=== PATIENT | female | born 1980 | race Caucasian/White ===

== ENCOUNTER 2017-08-09 20:48 | Emergency (ER) | payer MEDICAID, OTHER ==
[~2017-08-09] VITALS: Ht 175.3 cm; Wt 104.3 kg
[~2017-08-09 20:48] MED LIST: CPR500T PO; DIAZ5TAB3 PO; HCTZ12.5T PO; TRAM50TA2 PO; TRIA1CAP4 PO; bp medication
--- OUTSIDE RECORDS SUMMARY | 2017-08-09 20:54 | XMS REPORT ---
Author Author BEN GABRIEL Organization [employer] Address Unknown Phone Unavailable Care Team Providers Care Loading Unit Operator Seating Name Role Phone BEN GABRIEL CP Unavailable Allergies No Known Allergies Problems Problem Type Condition Code Onset Dates Condition Status Problem Essential hypertension I10 Active Problem ADD (attention deficit disorder) F90.0 Active Medications Medication Code System Code Instructions Start Date End Date Status Dosage Mohini [facility] [address]-98 5-325 MG Orally 3 times a day prn October 04, 2015 Oct 14, 2015 1 tablet as needed Results No Known Results Summary Purpose eClinicalWorks Submission
--- OUTSIDE RECORDS SUMMARY | 2017-08-09 20:54 | XMS REPORT ---
Author Author EVANGELIST SMITH Organization [employer] Address Unknown Phone Unavailable Care Team Providers Care Business School Dean Name Role Phone EVANGELIST SMITH CP Unavailable Allergies, Adverse Reactions, Alerts Substance Reaction Event Type Dairy Info Not Available Non Drug Allergy oranges Info Not Available Non Drug Allergy carrots Info Not Available Non Drug Allergy gluten Info Not Available Non Drug Allergy Problems Problem Type Condition Code Onset Dates Condition Status Assessment Attention deficit hyperactivity disorder (ADHD), combined type F90.2 Active Problem Essential hypertension I10 Active Medications Medication Code System Code Instructions Start Date End Date Status Dosage Vyvanse [facility] [address]-12 30 MG Orally Once a day Mar 29, 2015 1 capsule in the morning Amlodipine Besylate [facility] [address]-31 5 MG Orally Once a day 1 tablet Hydrochlorothiazide [facility] [address]-88 12.5 MG Orally Once a day 1 capsule Multivitamins [facility] [address] Orally not defined Procedures Procedure Coding System Code Date Psych diagnostic evaluation w/medical services, established patient CPT-4 57725 Mar 29, 2015 Vital Signs Date/Time: Mar 29, 2015 Cardiac Monitoring Heart Rate 80 bpm Weight 246.9 lbs Height 70 in BMI 35.42 Index Blood Pressure Diastolic 86 mmHg Blood Pressure Systolic 158 mmHg Results No Known Results Summary Purpose eClinicalWorks Submission
--- OUTSIDE RECORDS SUMMARY | 2017-08-09 20:54 | XMS REPORT ---
Author Author LACEY Mcintosh Organization [facility] Address Unknown Care Team Providers Care Printer Slotter Operator Name Role Phone LACEY Mcintosh Unavailable PROBLEMS Type Condition ICD9-CM Code [id number] Code Onset Dates Condition Status SNOMED Code Problem Generalized anxiety disorder F41.1 Active 43989293 Problem Attention deficit hyperactivity disorder (ADHD), combined type F90.2 Active 802753651 Problem ADD (attention deficit disorder) F90.0 Active 063728926 Problem Essential hypertension I10 Active 54675528 ALLERGIES Substance Reaction Event Type Date Status gluten Unknown Non Drug Allergy Mar, Active Dairy Unknown Non Drug Allergy Mar, Active oranges Unknown Non Drug Allergy Mar, Active carrots Unknown Non Drug Allergy Mar, Active SOCIAL HISTORY No smoking Hx information available PLAN OF CARE Activity Details Follow Up 3 Months Reason: VITAL SIGNS Height 70 in 2016-03-31 Weight 233.6 lbs 2016-03-31 Heart Rate 92 bpm 2016-03-31 Respiratory Rate 20 2016-03-31 BMI 33.51 kg/m2 2016-03-31 Blood pressure systolic 164 mmHg 2016-03-31 Blood pressure diastolic 85 mmHg 2016-03-31 MEDICATIONS Medication Instructions Dosage Frequency Start Date End Date Duration Status Adderall 20 mg Orally 2 times a day 1 tablet in the morning AND ONE IN AFTERNOON 12h Mar, 30 days Active Multivitamins Active [place] 5-325 MG Orally 2 times a day prn 1 tablet as needed Sep, Active RESULTS Name Result Date Reference Range URINE DRUG SCREEN (IN HOUSE) 2016-03-31 Lot # [id number] Exp date Control + COCAINE Negative AMPH Positive MTD Negative THC Positive OPIATE Negative BENZO Negative PCP Negative BAR Negative OXY Negative MAMP Negative TCA Negative BUP Negative MDMA Negative PROCEDURES Procedure Date Ordered Related Diagnosis Body Site DRUG TEST PRSMV DIR OPT OBS Mar 31, 2016 MH Office Visit, Est Pt., Level 3 Mar 31, 2016 IMMUNIZATIONS No Known Immunizations
--- OUTSIDE RECORDS SUMMARY | 2017-08-09 20:54 | XMS REPORT ---
Author Author EVANGELIST SMITH Organization [employer] Address Unknown Phone Unavailable Care Team Providers Care Retail Marketing Manager Name Role Phone EVANGELIST SMITH Unavailable Allergies No Known Allergies Problems Problem Type Condition Code Onset Dates Condition Status Problem Essential hypertension I10 Active Medications No Known Medications Results No Known Results Summary Purpose eClinicalWorks Submission
--- OUTSIDE RECORDS SUMMARY | 2017-08-09 20:54 | XMS REPORT ---
Author Author LACEY Mcintosh Organization [facility] Address Unknown Care Team Providers Care Line Servicer Name Role Phone LACEY Mcintosh Unavailable PROBLEMS Type Condition ICD9-CM Code [id number] Code Onset Dates Condition Status SNOMED Code Problem Generalized anxiety disorder F41.1 Active 32232365 Problem Attention deficit hyperactivity disorder (ADHD), combined type F90.2 Active 180292008 Problem ADD (attention deficit disorder) F90.0 Active 482035148 Problem Essential hypertension I10 Active 21274257 ALLERGIES Substance Reaction Event Type Date Status gluten Unknown Non Drug Allergy Jun, Active Dairy Unknown Non Drug Allergy Jun, Active oranges Unknown Non Drug Allergy Jun, Active carrots Unknown Non Drug Allergy Jun, Active SOCIAL HISTORY Never Assessed PLAN OF CARE Activity Details Follow Up 3 Months Reason: VITAL SIGNS Height 70 in 2016-06-30 Weight 245.0 lbs 2016-06-30 Heart Rate 80 bpm 2016-06-30 Respiratory Rate 20 2016-06-30 BMI 35.15 kg/m2 2016-06-30 Blood pressure systolic 180 mmHg 2016-06-30 Blood pressure diastolic 90 mmHg 2016-06-30 MEDICATIONS Medication Instructions Dosage Frequency Start Date End Date Duration Status Multivitamins Active Adderall 20 mg Orally twice a day 1 tablet 12h Jun, 30 days Active BusPIRone HCl 10 MG Orally as needed Twice a day 1 tablet 12h Jun, 30 days Active RESULTS No Results PROCEDURES No Known procedures IMMUNIZATIONS No Known Immunizations MEDICAL (GENERAL) HISTORY Type Description Date Medical History Hypertension Medical History Arthritis Medical History Chronic pain Medical History Seasonal allergies/food allergies Medical History ADHD Surgical History bilateral carpal tunnel release Surgical History Right ulnar nerve release Surgical History Right tennis elbow repair Surgical History Right shoulder repair Surgical History Right knee fracture repair Surgical History tonsillectomy Surgical History Tubal ligation Hospitalization History Food poisoning Hospitalization History past surgery
--- OUTSIDE RECORDS SUMMARY | 2017-08-09 20:54 | XMS REPORT ---
Author Author LACEY Mcintosh Organization [facility] Address Unknown Care Team Providers Care Physical Biochemist Name Role Phone LACEY Mcintosh Unavailable PROBLEMS Type Condition ICD9-CM Code [id number] Code Onset Dates Condition Status SNOMED Code Problem Generalized anxiety disorder F41.1 Active 01431619 Problem Attention deficit hyperactivity disorder (ADHD), combined type F90.2 Active 196556308 Problem ADD (attention deficit disorder) F90.0 Active 844321852 Problem Essential hypertension I10 Active 54306138 ALLERGIES No Information ENCOUNTERS Encounter Location Date Diagnosis [facility] [id number] [place] [address] Jun, [facility] [id number] [place] [address] May, [facility] [id number] [place] [address] Apr, Attention deficit hyperactivity disorder (ADHD), combined type F90.2 [facility] [id number] [place] [address] Apr, [facility] [id number] [place] [address] Apr, Generalized anxiety disorder F41.1 and Attention deficit hyperactivity disorder (ADHD), predominantly inattentive type F90.0 [facility] [id number] [place] [address] Sep, [facility] [id number] [place] [address] Aug, [facility] [id number] [place] [address] July, [facility] [id number] [address] Jun, Attention deficit hyperactivity disorder (ADHD), combined type F90.2 ; ADD (attention deficit disorder) F90.0 and Generalized anxiety disorder F41.1 [facility] [id number] [place] [address] Apr, Attention deficit hyperactivity disorder (ADHD), combined type F90.2 [facility] [id number] [place] [address] Mar, Attention deficit hyperactivity disorder (ADHD), combined type F90.2 [facility] [id number] [place] [address] Jan, [facility] [address] [place] [address] Jan, Attention deficit hyperactivity disorder (ADHD), combined type F90.2 [facility] [address] [place] [address] Dec, [facility] [id number] [place] [address] Nov, [facility] [address] [place] [address] Oct, [facility] [id number] [address] Oct, [facility] [id number] [place] [address] Oct, [facility] [id number] [address] Sep, Acute pain of left knee M25.562 [facility] [id number] [place] [address] Sep, [facility] [id number] [place] [address] Aug, [facility] [address] [address] Aug, Attention deficit hyperactivity disorder (ADHD), combined type F90.2 [facility] [id number] [place] [address] July, [facility] [address] [place] [address] Jun, [facility] [address] [address] May, ADD (attention deficit disorder) F90.0 [facility] [id number] [place] [address] May, [facility] [id number] [place] [address] May, [facility] [address] [address] Apr, [facility] [address] [place] [address] Apr, [facility] [id number] [place] [address] Apr, [facility] [address] [address] Mar, [facility] [address] [place] [address] Mar, [facility] [address] [place] [address] Mar, [facility] [address] [place] [address] Mar, Attention deficit hyperactivity disorder (ADHD), combined type F90.2 [facility] [address] [place] [address] Feb, [facility] [id number] [address] Feb, Essential hypertension I10 ; History of vitamin D deficiency Z86.39 ; Joint pain M25.50 and Other specified counseling Z71.89 IMMUNIZATIONS No Known Immunizations SOCIAL HISTORY Never Assessed REASON FOR VISIT adderall 10/01/2016 PLAN OF CARE VITAL SIGNS MEDICATIONS Medication Instructions Dosage Frequency Start Date End Date Duration Status Adderall 20 mg Orally twice a day 1 tablet 12h Sep, 28 days Active RESULTS No Results PROCEDURES No Known procedures INSTRUCTIONS MEDICATIONS ADMINISTERED No Known Medications MEDICAL (GENERAL) HISTORY Type Description Date Medical [...]
--- OUTSIDE RECORDS SUMMARY | 2017-08-09 20:54 | XMS REPORT ---
Author Author LACEY REDMAN [facility] Address Unknown Care Team Providers Care Lumber Tailer Name Role Phone ЮЛИЯLACEY Unavailable PROBLEMS Type Condition ICD9-CM Code [id number] Code Onset Dates Condition Status SNOMED Code Problem Generalized anxiety disorder F41.1 Active 07071930 Problem Attention deficit hyperactivity disorder (ADHD), combined type F90.2 Active 293127886 Problem ADD (attention deficit disorder) F90.0 Active 157674547 Problem Essential hypertension I10 Active 66055527 ALLERGIES Unknown Allergies SOCIAL HISTORY No smoking Hx information available PLAN OF CARE Activity Details Follow Up 3 Months Reason: VITAL SIGNS Height 70 in 2016-01-21 Weight 242.8 lbs 2016-01-21 Heart Rate 92 bpm 2016-01-21 Respiratory Rate 20 2016-01-21 BMI 34.83 kg/m2 2016-01-21 Blood pressure systolic 168 mmHg 2016-01-21 Blood pressure diastolic 94 mmHg 2016-01-21 MEDICATIONS Medication Instructions Dosage Frequency Start Date End Date Duration Status Adderall 20 MG Orally 2 times a day 1 tablet in the morning AND ONE IN AFTERNOON 12h Jan, 30 days Active [place] 5-325 MG Orally 2 times a day prn 1 tablet as needed Sep, Active Multivitamins Active RESULTS No Results PROCEDURES Procedure Date Ordered Related Diagnosis Body Site MH Office Visit, Est Pt., Level 3 Jan 21, 2016 IMMUNIZATIONS No Known Immunizations
--- OUTSIDE RECORDS SUMMARY | 2017-08-09 20:54 | XMS REPORT ---
Author Author EVANGELIST SMITH [facility] eClinicalWorks Address Unknown Phone Unavailable Care Team Providers Care Filter Tender Jelly Name Role Phone EVANGELIST SMITH Unavailable Allergies No Known Allergies Problems Problem Type Condition Code Onset Dates Condition Status Problem Essential hypertension I10 Active Medications Medication Code System Code Instructions Start Date End Date Status Dosage Adderall [facility] [address]-48 20 MG Orally 2 times a day Mar 31, 2015 1 tablet in the morning AND ONE IN AFTERNOON Results No Known Results Summary Purpose eClinicalWorks Submission
--- OUTSIDE RECORDS SUMMARY | 2017-08-09 20:54 | XMS REPORT ---
Author Author LACEY REDMAN Organization [employer] Address Unknown Phone Unavailable Care Team Providers Care Development Expert Name Role Phone LACEY REDMAN Unavailable Allergies No Known Allergies Problems Problem Type Condition Code Onset Dates Condition Status Problem Essential hypertension I10 Active Problem ADD (attention deficit disorder) F90.0 Active Medications Medication Code System Code Instructions Start Date End Date Status Dosage Adderall [facility] [address]-37 20 mg Orally 2 times a day Mar 31, 2015 1 tablet in the morning AND ONE IN AFTERNOON Results No Known Results Summary Purpose eClinicalWorks Submission
--- OUTSIDE RECORDS SUMMARY | 2017-08-09 20:54 | XMS REPORT ---
Author FISH Rock Organization [employer] Address Unknown Phone Unavailable Care Team Providers Care Metal Tank Builder Name Role Phone FISH HSIEH Unavailable Allergies No Known Allergies Problems Problem Type Condition Code Onset Dates Condition Status Problem Essential hypertension I10 Active Problem ADD (attention deficit disorder) F90.0 Active Medications Medication Code System Code Instructions Start Date End Date Status Dosage Adderall [facility] [address]-22 20 MG Orally 2 times a day Mar 31, 2015 1 tablet in the morning AND ONE IN AFTERNOON Results No Known Results Summary Purpose eClinicalWorks Submission
--- OUTSIDE RECORDS SUMMARY | 2017-08-09 20:54 | XMS REPORT ---
Author Author LACEY Mcintosh Organization [facility] Address Unknown Care Team Providers Care Water Softener Service Supervisor Name Role Phone LACEY Mcintosh Unavailable PROBLEMS Type Condition ICD9-CM Code [id number] Code Onset Dates Condition Status SNOMED Code Problem Generalized anxiety disorder F41.1 Active 59656160 Problem Attention deficit hyperactivity disorder (ADHD), combined type F90.2 Active 060141801 Problem ADD (attention deficit disorder) F90.0 Active 660595667 Problem Essential hypertension I10 Active 83129317 ALLERGIES Unknown Allergies SOCIAL HISTORY No smoking Hx information available PLAN OF CARE VITAL SIGNS MEDICATIONS Medication Instructions Dosage Frequency Start Date End Date Duration Status Adderall 20 mg Orally 2 times a day 1 tablet in the morning AND ONE IN AFTERNOON 12h 23 Mar, 2016 30 days Active RESULTS No Results PROCEDURES No Known procedures IMMUNIZATIONS No Known Immunizations
--- OUTSIDE RECORDS SUMMARY | 2017-08-09 20:54 | XMS REPORT ---
Author Author LACEY REDMAN [facility] Address Unknown Care Team Providers Care Director Of Flight Operations Name Role Phone LACEY REDMAN Unavailable PROBLEMS Type Condition ICD9-CM Code [id number] Code Onset Dates Condition Status SNOMED Code Problem ADD (attention deficit disorder) F90.0 Active 047067951 Problem Essential hypertension I10 Active 84159838 ALLERGIES Unknown Allergies SOCIAL HISTORY No smoking Hx information available PLAN OF CARE VITAL SIGNS MEDICATIONS Medication Instructions Dosage Frequency Start Date End Date Duration Status Adderall 20 mg Orally 2 times a day 1 tablet in the morning AND ONE IN AFTERNOON 12h 23 Mar, 2015 Active RESULTS No Results PROCEDURES No Known procedures IMMUNIZATIONS No Known Immunizations
--- OUTSIDE RECORDS SUMMARY | 2017-08-09 20:54 | XMS REPORT ---
Author FISH Rock [facility] eClinicalWorks Address Unknown Phone Unavailable Care Team Providers Care Art Display Maker Name Role Phone FISH HSIEH Unavailable Allergies No Known Allergies Problems Problem Type Condition Code Onset Dates Condition Status Problem Essential hypertension I10 Active Medications Medication Code System Code Instructions Start Date End Date Status Dosage Vyvanse [facility] [address]-09 30 MG Orally Once a day Mar 29, 2015 1 capsule in the morning Adderall [facility] [address]-26 20 MG Orally 2 times a day Mar 31, 2015 1 tablet in the morning AND ONE IN AFTERNOON Results No Known Results Summary Purpose eClinicalWorks Submission
--- OUTSIDE RECORDS SUMMARY | 2017-08-09 20:55 | XMS REPORT ---
Author Author BEN GABRIEL [facility] eClinicalWorks Address Unknown Phone Unavailable Care Team Providers Care Sewer Pipe Layer Name Role Phone BEN GABRIEL Unavailable Allergies, Adverse Reactions, Alerts Substance Reaction Event Type gluten Info Not Available Non Drug Allergy Dairy Info Not Available Non Drug Allergy oranges Info Not Available Non Drug Allergy carrots Info Not Available Non Drug Allergy Problems Problem Type Condition Code Onset Dates Condition Status Assessment Essential hypertension I10 Active Assessment History of vitamin D deficiency Z86.39 Active Problem Essential hypertension I10 Active Assessment Joint pain M25.50 Active Assessment Other specified counseling Z71.89 Active Medications Medication Code System Code Instructions Start Date End Date Status Dosage Amlodipine Besylate [facility] [address]-18 5 MG Orally Once a day 1 tablet Hydrochlorothiazide [facility] [address]-05 12.5 MG Orally Once a day 1 capsule Multivitamins [facility] [address] Orally not defined Procedures Procedure Coding System Code Date ASSAY THYROID STIM HORMONE CPT-4 52389 Feb 22, 2015 ASSAY OF VITAMIN D CPT-4 74399 Feb 22, 2015 COMPREHEN METABOLIC PANEL CPT-4 59732 Feb 22, 2015 Office Visit, New Pt., Level 3 CPT-4 05272 Feb 22, 2015 COMPLETE CBC W/AUTO DIFF WBC CPT-4 24382 Feb 22, 2015 VENIPUNCT, ROUTINE* CPT-4 85455 Feb 22, 2015 Vital Signs Date/Time: Feb 22, 2015 Temperature 97.7 F Weight 246.9 lbs Height 70 in BMI 35.42 Index Blood Pressure Diastolic 84 mmHg Blood Pressure Systolic 146 mmHg Cardiac Monitoring Heart Rate 82 bpm Results Name Result Date Reference Range Unit Abnormality Flag CBC ----Lymphs 20 [id number] % ----Neutrophils 72 52925570 % ----Baso (Absolute) 0.0 [id number] 0.0-0.2 x10E3/uL ----Hemoglobin 13.2 20150222 11.1-15.9 g/dL ----Eos (Absolute) 0.1 51409843 0.0-0.4 x10E3/uL ----Hematocrit 40.4 74766373 34.0-46.6 % ----Monocytes(Absolute) 0.5 49909385 0.1-0.9 x10E3/uL ----MCV 88 05274731 79-97 fL ----Lymphs (Absolute) 1.4 86387858 0.7-3.1 x10E3/uL ----MCH 28.6 46018735 26.6-33.0 pg ----Neutrophils (Absolute) 5.1 60668718 1.4-7.0 x10E3/uL ----MCHC 32.7 89845050 31.5-35.7 g/dL ----Immature Granulocytes 0 74871796 % ----Basos 0 24011373 % ----RDW 13.8 91008543 12.3-15.4 % ----Immature Grans (Abs) 0.0 81875392 0.0-0.1 x10E3/uL ----WBC 7.1 46880329 3.4-10.8 x10E3/uL ----Platelets 221 57847874 150-379 x10E3/uL ----Eos 1 20150222 % ----RBC 4.61 78620418 3.77-5.28 x10E6/uL ----Monocytes 7 13171722 % VITAMIN D, 25-H ----Vitamin D, 25-Hydroxy 32.7 20150222 30.0-100.0 ng/mL ROUTINE VENIPUNCTURE TSH ----TSH 1.490 [id number] 0.450-4.500 uIU/mL CMP ----Potassium, Serum 3.8 20150222 3.5-5.2 mmol/L ----Sodium, Serum 141 20150222 134-144 mmol/L ----BUN/Creatinine Ratio 6 75734628 8-20 L ----eGFR If Africn Am 91 05007740 >59 mL/min/1.73 ----eGFR If NonAfricn Am 79 59381653 >59 mL/min/1.73 ----Creatinine, Serum 0.93 13251462 0.57-1.00 mg/dL ----BUN 6 20150222 6-20 mg/dL ----Glucose, Serum 92 20150222 65-99 mg/dL ----AST (SGOT) 11 20150222 0-40 IU/L ----Globulin, Total 2.5 20150222 1.5-4.5 g/dL ----ALT (SGPT) 19 20150222 0-32 IU/L ----A/G Ratio 1.7 20150222 1.1-2.5 ----Bilirubin, Total 0.4 20150222 0.0-1.2 mg/dL ----Alkaline Phosphatase, S 70 20150222 39-117 IU/L ----Carbon Dioxide, Total 31 20150222 18-29 mmol/L H ----Calcium, Serum 9.5 20150222 8.7-10.2 mg/dL ----Protein, Total, Serum 6.7 20150222 6.0-8.5 g/dL ----Albumin, Serum 4.2 20150222 3.5-5.5 g/dL ----Chloride, Serum 100 20150222 97-108 mmol/L Summary Purpose eClinicalWorks Submission
--- OUTSIDE RECORDS SUMMARY | 2017-08-09 20:55 | XMS REPORT ---
Author Author BEN GABRIEL Organization [employer] Address Unknown Phone Unavailable Care Team Providers Care Php Developer Name Role Phone BEN GABRIEL CP Unavailable Allergies No Known Allergies Problems Problem Type Condition Code Onset Dates Condition Status Problem Essential hypertension I10 Active Medications No Known Medications Results No Known Results Summary Purpose eClinicalWorks Submission
--- OUTSIDE RECORDS SUMMARY | 2017-08-09 20:55 | XMS REPORT ---
Author Author STEVEN BARONE [facility] eClinicalWorks Address Unknown Phone Unavailable Care Team Providers Care Round Boner Name Role Phone STEVEN BARONE Unavailable Allergies No Known Allergies Problems Problem Type Condition Code Onset Dates Condition Status Problem Essential hypertension I10 Active Problem ADD (attention deficit disorder) F90.0 Active Medications Medication Code System Code Instructions Start Date End Date Status Dosage [facility] [address]-02 5-325 MG Orally 2 times a day prn October 04, 2015 1 tablet as needed Results No Known Results Summary Purpose eClinicalWorks Submission
--- OUTSIDE RECORDS SUMMARY | 2017-08-09 20:55 | XMS REPORT ---
Author Author BEN GABRIEL Organization [employer] Address Unknown Phone Unavailable Care Team Providers Care Keyboard Teacher Name Role Phone BEN GABRIEL CP Unavailable Allergies, Adverse Reactions, Alerts Substance Reaction Event Type gluten Info Not Available Non Drug Allergy Dairy Info Not Available Non Drug Allergy oranges Info Not Available Non Drug Allergy carrots Info Not Available Non Drug Allergy Problems Problem Type Condition Code Onset Dates Condition Status Problem Essential hypertension I10 Active Assessment Acute pain of left knee M25.562 Active Problem ADD (attention deficit disorder) F90.0 Active Medications Medication Code System Code Instructions Start Date End Date Status Dosage Adderall [facility] [address]-42 20 mg Orally 2 times a day Mar 31, 2015 1 tablet in the morning AND ONE IN AFTERNOON Multivitamins [facility] [address] Orally not defined Bradley [facility] [address]-27 5-325 MG Orally 3 times a day prn October 04, 2015 Oct 14, 2015 1 tablet as needed Procedures Procedure Coding System Code Date Office Visit, Est Pt., Level 4 CPT-4 38735 October 04, 2015 X-RAY EXAM OF KNEE, 3 CPT-4 26883 October 04, 2015 Vital Signs Date/Time: October 04, 2015 Cardiac Monitoring Heart Rate 100 bpm Weight 234 lbs Height 70 in BMI 33.57 Index Blood Pressure Diastolic 86 mmHg Blood Pressure Systolic 130 mmHg Results No Known Results Summary Purpose [employer] Submission
--- OUTSIDE RECORDS SUMMARY | 2017-08-09 20:55 | XMS REPORT ---
Author Author EVANGELIST SMITH Organization [employer] Address Unknown Phone Unavailable Care Team Providers Care Cleaner Housekeeping Name Role Phone EVANGELIST SMITH Unavailable Allergies No Known Allergies Problems Problem Type Condition Code Onset Dates Condition Status Problem Essential hypertension I10 Active Medications No Known Medications Results No Known Results Summary Purpose [employer] Submission
--- OUTSIDE RECORDS SUMMARY | 2017-08-09 20:55 | XMS REPORT ---
Author Author LACEY Mcintosh Organization [facility] Address Unknown Care Team Providers Care Hot Die Press Feeder Name Role Phone LACEY Mcintosh Unavailable PROBLEMS Type Condition ICD9-CM Code AGO45-JO Code Onset Dates Condition Status SNOMED Code Problem Generalized anxiety disorder F41.1 Active 75371938 Problem Attention deficit hyperactivity disorder (ADHD), combined type F90.2 Active 738126507 Problem ADD (attention deficit disorder) F90.0 Active 387741877 Problem Essential hypertension I10 Active 03144250 ALLERGIES No Information SOCIAL HISTORY Never Assessed PLAN OF CARE VITAL SIGNS MEDICATIONS Medication Instructions Dosage Frequency Start Date End Date Duration Status Adderall 20 mg Orally twice a day 1 tablet 12h July, 28 days Active RESULTS No Results PROCEDURES [...]
--- NOTE | 2017-08-09 22:41 | ED Lower Extremity ---
General Chief Complaint: Foreign Body Stated Complaint: TOOTHPICK IN R FOOT ON THURSDAY, POSS INFECTION Nursing Triage Note: Pt. advises she stepped on a tooth pick thursday. She advises the tooth pick was removed at that time however she is now experiencing swelling, redness and warmth to the touch. Nursing Sepsis Screen: No Definite Risk Source: patient, other Exam Limitations: no limitations History of Present Illness Date Seen by Provider: Aug 09, 2017 Time Seen by Provider: 22:33 Initial Comments The patient presents to the ER by private conveyance with her significant other and a chief complaint that Thursday, 7 days ago she stepped on a toothpick and her significant other thought that they got all the pulled out but it's continued to swell and be painful and turn red in her right foot between her first and second digit. She thinks her last tetanus shot was greater than 5 years ago. She's having no fevers chills nausea vomiting diarrhea. Allergies and Home Medications Allergies Coded Allergies: No Known Drug Allergies (Unverified , 11/09/11) Home Medications Hydrochlorothiazide 12.5 Mg Cap, 12.5 MG PO DAILY, (Reported) Tramadol Hcl 50 Mg Tablet, 50 MG PO Q4H PRN for PAIN Prescribed by: TRAMAINE FREY on 05/22/142039 Patient Home Medication List Home Medication List Reviewed: Yes Constitutional: No chills, No diaphoresis, No fever EENTM: No ear discharge, No ear pain Respiratory: No cough, No short of breath Cardiovascular: No chest pain, No Hx of Intervention, No palpitations Gastrointestinal: No abdominal pain, No constipation, No nausea Genitourinary: No discharge, No dysuria : No Control/STD Prophylaxis: Other (tubal ligation) Musculoskeletal: No back pain, No joint pain Skin: No pruritus, No rash Psychiatric/Neurological: Denies Headache, Denies Numbness Past Khjizkv-Qqoncd-Uprwxc Hx Patient Social History Alcohol Use: Denies Use Recreational Drug Use: No Smoking Status: Never a Smoker Recent Foreign Travel: No Contact w/Someone Who Travel: No Recent Infectious Disease Expo: No Physical Abuse: No Sexual Abuse: No Past Medical History Surgeries: Yes (l knee , r elbow, r rotoar cuff, bilat carpal tunnel) Tonsillectomy, Tubal Ligation Respiratory: No Cardiac: Yes Hypertension Neurological: 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 Gastrointestinal: No Musculoskeletal: No Endocrine: No Cancer: No Psychosocial: No Nursing Suicide Risk Score: 0 Integumentary: No Blood Disorders: No Adverse Reaction/Blood Tranf: No Family Medical History No Pertinent Family Hx Physical Exam Vital Signs Vital Signs - First Documented 08/09/17 22:05 Temp 97.2 Pulse 73 Resp 16 B/P (MAP) 133/79 (97) Pulse Ox 99 O2 Delivery Room Air Capillary Refill : Less Than 3 Seconds General Appearance: WD/WN, no apparent distress HEENT: PERRL/EOMI, pharynx normal Neck: non-tender, normal inspection Cardiovascular: normal peripheral pulses, regular rate, rhythm Respiratory: no respiratory distress, no accessory muscle use Gastrointestinal: non tender, soft Feet: right foot other (erythema, swelling, soft tissue tenderness, pore that is not discharging anything) Neurologic/Tendon: normal sensation, normal motor functions, normal tendon functions, responds to pain, no evidence tendon injury Neurologic/Psychiatric: alert, oriented x 3 Skin: normal color, warm/dry Lymphatic: no adenopathy Progress/Results/Core Measures Results/Orders Lab Results Laboratory Tests Test 08/09/17 23:02 Range/Units White Blood Count 10.8 4.3-11.0 10^3/uL Red Blood Count 4.71 4.35-5.85 10^6/uL Hemoglobin 13.4 11.5-16.0 G/DL Hematocrit 40 35-52 % Mean Corpuscular Volume 86 80-99 FL Mean Corpuscular Hemoglobin 29 25-34 PG Mean Corpuscular Hemoglobin Concent 33 32-36 G/DL Red Cell Distribution Width 14.2 10.0-14.5 % Platelet Count 238 130-400 10^3/uL Mean Platelet Volume 11.2 H 7.4-10.4 FL Neutrophils (%) (Auto) 85 H 42-75 % Lymphocytes (%) (Auto) 9 L 12-44 % Monocytes (%) (Auto) 5 0-12 % Eosinophils (%) (Auto) 1 0-10 % Basophils (%) (Auto) 0 0-10 % Neutrophils # (Auto) 9.2 H 1.8-7.8 X 10^3 Lymphocytes # (Auto) 1.0 1.0-4.0 X 10^3 Monocytes # (Auto) 0.5 0.0-1.0 X 10^3 Eosinophils # (Auto) 0.1 0.0-0.3 10^3/uL Basophils # (Auto) 0.0 0.0-0.1 10^3/uL Sodium Level 140 135-145 MMOL/L Potassium Level 3.9 3.6-5.0 MMOL/L Chloride Level 103 98-107 MMOL/L Carbon Dioxide Level 26 21-32 MMOL/L Anion Gap 11 5-14 MMOL/L Blood Urea Nitrogen 12 7-18 MG/DL Creatinine 0.85 0.60-1.30 MG/DL Estimat Glomerular Filtration Rate > 60 BUN/Creatinine Ratio 14 Glucose Level 100 70-105 MG/DL Calcium Level 9.4 8.5-10.1 MG/DL Total Bilirubin 0.4 0.1-1.0 MG/DL Aspartate Amino Transf (AST/SGOT) 10 5-34 U/L Alanine Aminotransferase (ALT/SGPT) 13 0-55 U/L Alkaline Phosphatase 115 40-136 U/L Total Protein 7.2 6.4-8.2 GM/DL Albumin 4.0 3.2-4.5 GM/DL My Orders Orders - CARLENE LOVE Fentanyl Injection (Sublimaze Injection (08/09/17 22:45) Dipht,Pertuss(Acell),Tet Adult (Boostrix (08/09/17 22:45) Cefepime Injection (Maxipime Injection) (08/09/17 23:00) Cbc With Automated Diff (08/09/17 22:46) Comprehensive Metabolic Panel (08/09/17 22:46) Foot, Right, 3 View (08/09/17 22:46) Iv Heplock-Insert (Order) (08/09/17 22:46) Fluconazole Tablet (Ed Only) (Diflucan T (08/09/17 23:15) Fentanyl Injection (Sublimaze Injection (08/09/17 23:30) Medications Given in ED Current Medications Medications Dose Ordered Sig/Leonard Route Start Time Stop Time Status Last Admin Dose Admin Cefepime HCl 2000 mg/Sodium Chloride 50 ml @ 100 mls/hr ONCE ONCE IV 08/09/17 23:00 08/09/17 23:29 DC 08/09/17 23:10 100 MLS/HR Diphtheria/ Tetanus/Acell Pertussis 0.5 ml ONCE ONCE IM 08/09/17 22:45 08/09/17 22:46 DC 08/09/17 23:09 0.5 ML Fentanyl Citrate 50 mcg ONCE ONCE IVP 08/09/17 22:45 08/09/17 22:46 DC 08/09/17 23:10 50 MCG Fentanyl Citrate 75 mcg ONCE ONCE IVP 08/09/17 23:30 08/09/17 23:31 DC 08/09/17 23:32 75 MCG Fluconazole 150 mg ONCE ONCE PO 08/09/17 23:15 08/09/17 23:16 DC 08/09/17 23:32 150 MG Vital Signs/I&O 08/09/17 08/09/17 22:05 23:09 Temp 97.2 97.2 Pulse 73 Resp 16 B/P (MAP) 133/79 (97) Pulse Ox 99 O2 Delivery Room Air Blood Pressure Mean: 97 Progress Progress Note #1: Time: 22:45 Progress Note Plain film x-ray of the right foot, cefepime IV for antipseudomonal coverage, numb the wound up with some lidocaine give her a tetanus shot and try and open it and explore and see if there is any foreign body. Progress Note #2: Time: 23:32 Progress Note We have given her 50 g of fentanyl and another 75 mg of fentanyl because she did not tolerate the lidocaine. After that had a chance to get on board we will attempt again. If she is not able to tolerate injecting lidocaine in her foot then she will need to follow-up with the general surgeon outpatient. She does not have an elevated white count nor she septic. Progress Note #3: Time: 23:46 Progress Note The patient has elected to follow up with Dr. Gracia. We'll make sure she has antibiotics and she can get further pain meds from Dr. Gracia. Clear liquid diet tomorrow morning has been described. Diagnostic Imaging Diagonstic Imaging: Xray Plain Films/CT/US/NM/MRI: other (right foot) Comments No acute osseous abnormalities. No gas or soft tissue signs of gangrenous changes. No foreign body apparent. Reviewed: Reviewed by Me Consults : Consulting Physician: AYAKA GRACIA DO Consults Notes He is willing to see the patient in the morning in the clinic. Clear liquid diet in the morning. Departure Impression Primary Impression: Foreign body in lower extremity Qualified Codes: S80.851A - Superficial foreign body, right lower leg, initial encounter Disposition: HOME, SELF-CARE Condition: Stable Departure-Patient Inst. Decision time for Depature: 23:46 Referrals: DANIELLE NASCIMENTO DO (PCP) Primary Care Physician BEN GABRIEL (Family) Primary Care Physician Patient Instructions: NO INSTRUCTIONS GIVEN Add. Discharge Instructions: Use Tylenol 1000 mg in addition to ibuprofen 800 mg every 8 hours as needed for pain. Keep the foot elevated above the level of your heart. Tomorrow morning please follow-up with Dr. Gracia's clinic. You may have clear liquids in the morning such as coffee, juice, water. 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 All discharge instructions reviewed with patient and/or family. Voiced understanding. Scripts Sulfamethoxazole/Trimethoprim (Bactrim Ds Tablet) 1 Each Tablet 2 EACH PO BID for 7 Days, #28 TAB 0 Refills Prov: CARLENE LOVE 08/09/17 Work/School Note: Work Release Form Date Seen in the Emergency Department: Aug 09, 2017 Return to Work: Aug 11, 2017 Restrictions: No Restrictions Copy Copies To 1: DANIELLE NASCIMENTO DO; AYAKA GRACIA TITUS J Aug 09, 2017 22:41
[2017-08-09] MEDS ORDERED: fentaNYL INJECTION 100 MCG/2 ML AMP IVP ONE ×2 (22:45→23:30)
[2017-08-09] MEDS ORDERED: TETANUS,DIPTH,PERTUSS P/F (BOOSTRIX) 0.5 ML VIAL IM ONE (22:45)
[2017-08-09] MEDS ORDERED: CEFEPIME INJECTION 2,000 MG in NS (IVPB) 50 ML IV ONE (23:00)
[2017-08-09 23:09] LABS: BASOPHILS % (AUTO) 0 % (0-10); EOSINOPHILS # (AUTO) 0.1 10^3/uL (0.0-0.3); EOSINOPHILS % (AUTO) 1 % (0-10); HEMATOCRIT 40 % (35-52); HEMOGLOBIN 13.4 G/DL (11.5-16.0); LYMPHOCYTES % (AUTO) 9 % (12-44); MEAN CORPUSCULAR HEMOGLOBIN 29 PG (25-34); MEAN CORPUSCULAR HGB CONC 33 G/DL (32-36); MEAN CORPUSCULAR VOLUME 86 FL (80-99); MEAN PLATELET VOLUME 11.2 FL (7.4-10.4); MONOCYTES # (AUTO) 0.5 X 10^3 (0.0-1.0); MONOCYTES % (AUTO) 5 % (0-12); NEUTROPHILS # (AUTO) 9.2 X 10^3 (1.8-7.8); NEUTROPHILS % (AUTO) 85 % (42-75); PLATELET COUNT 238 10^3/uL (130-400); RED BLOOD COUNT 4.71 10^6/uL (4.35-5.85); RED CELL DISTRIBUTION WIDTH 14.2 % (10.0-14.5); WHITE BLOOD COUNT 10.8 10^3/uL (4.3-11.0)
[2017-08-09] MEDS ORDERED: FLUCONAZOLE 150 MG TABLET (ED ONLY) PO ONE (23:15)
[2017-08-09 23:29] LABS: ALANINE AMINOTRANSFERASE 13 U/L (0-55); ALKALINE PHOSPHATASE 115 U/L (40-136); BILIRUBIN,TOTAL 0.4 MG/DL (0.1-1.0); BUN/CREATININE RATIO 14; CALCIUM 9.4 MG/DL (8.5-10.1); CARBON DIOXIDE 26 MMOL/L (21-32); CHLORIDE 103 MMOL/L (98-107); CREATININE SERUM 0.85 MG/DL (0.60-1.30); GFR ESTIMATED > 60; GLUCOSE 100 MG/DL (70-105); POTASSIUM 3.9 MMOL/L (3.6-5.0); SODIUM 140 MMOL/L (135-145); TOTAL PROTEIN 7.2 GM/DL (6.4-8.2)
[2017-08-09] MEDS ORDERED: SULF1TAB35 PO (23:49)
[2017-08-09 23:56] VITALS: BP 133/79
--- NOTE | 2017-08-10 07:34 | Diagnostic Imaging Report ---
INDICATION: Toothpick in the bottom of the foot. FINDINGS: No radiopaque or discrete radiolucent linear foreign body is radiographically identified. Wooden foreign bodies can be occult at radiograph. Ultrasound may be useful as further evaluation. No fracture or acute periosteal reaction. IMPRESSION: I am unable to identify the reported foreign body. Targeted ultrasound over that particular site of concern are recommended. I note no obvious gas or focal swelling to localize the site of a puncture wound at this exam. Dictated by: Dictated on workstation # [id number]
[2017-08-10] MEDS ORDERED: HYDR12.56 PO (17:12)
[2017-08-10] MEDS ORDERED: MULT-974 PO (17:16)
[2017-08-10] MEDS ORDERED: NF-ADXR10C PO (17:16)
[2017-08-10] MEDS ORDERED: DIAZ5TAB3 PO (17:16)
[2017-08-10] MEDS ORDERED: ACHD5005 PO (17:48)
== END 2017-08-09 23:56 | disposition home or self-care (01) ==
LOC: EDUNIT# 20:48 → ER 20:50
DX: S80.851A Superficial foreign body, right lower leg, initial encounter (principal); I10 Essential (primary) hypertension; Z23 Encounter for immunization; Z90.89 Acquired absence of other organs; Z98.51 Tubal ligation status; X58.XXXA Exposure to other specified factors, initial encounter
CPT/HCPCS: 36415; 73630; 80053; 85025; 90471; 90715; 96365; 96375

== ENCOUNTER 2017-08-10 15:30 | Day surgery (SDC) | payer MEDICAID, OTHER ==
[~2017-08-10] VITALS: Ht 177.8 cm; Wt 104.3 kg
[~2017-08-10 15:30] MED LIST changes: +SULF1TAB35 PO
[2017-08-10 15:35] VITALS: BP 139/78
[2017-08-10] MEDS ORDERED: ceFAZolin 2 GM/50 ML PRE-MIX IVPB IV ONE (16:00)
[2017-08-10] MEDS ORDERED: LACTATED RINGERS 1,000 ML IV PRN (16:27)
[2017-08-10] MEDS ORDERED: fentaNYL INJECTION 100 MCG/2 ML AMP ONE ×3 (16:39→17:27)
[2017-08-10] MEDS ORDERED: fentaNYL INJECTION 100 MCG/2 ML AMP IVP ONE (16:45)
[2017-08-10] MEDS ORDERED: MIDAZOLAM 2 MG/2 ML (VERSED) VIAL ONE (16:51)
[2017-08-10] MEDS ORDERED: LIDOCAINE PF 2% 5 ML (XYLOCAINE) VIAL ONE (17:09)
[2017-08-10] MEDS ORDERED: ONDANSETRON 4 MG/2 ML (SDV) Z0FRAN ONE (17:09)
[2017-08-10] MEDS ORDERED: proPOfol 200 MG/20 ML (DIPRIVAN) VIAL IV ONE (17:09)
[2017-08-10] MEDS ORDERED: SEVOFLURANE (ULTANE) 15 ML INHAL SOLN ONE ×2 (17:09→17:27)
[2017-08-10] MEDS ORDERED: DEXAMETHASONE 10 MG/ML (DECADRON) 1 ML VIAL ONE (17:09)
[2017-08-10] MEDS ORDERED: HYDR12.56 PO (17:12)
[2017-08-10] MEDS ORDERED: NF-ADXR10C PO (17:16)
[2017-08-10] MEDS ORDERED: DIAZ5TAB3 PO (17:16)
[2017-08-10] MEDS ORDERED: MULT-974 PO (17:16)
[2017-08-10] MEDS ORDERED: ONDANSETRON 4 MG/2 ML (SDV) Z0FRAN IVP PRN (17:30)
[2017-08-10] MEDS ORDERED: morphine INJ 10 MG/ML 1ML (SYR OR VIAL) IVP PRN (17:30)
[2017-08-10] MEDS ORDERED: HYDROmorphone 1 MG/ML (DILAUDID) 1 ML SYRINGE IV PRN (17:30)
--- NOTE | 2017-08-10 17:47 | Progress Note-Post Operative ---
Post-Operative Progess Note Surgeon (s)/Multi Disciplined Language Analyst (s) Surgeon AYAKA GRACIA DO Multi Disciplined Language Analyst: na Pre-Operative Diagnosis FOREIGN BODY RIGHT FOOT Post-Operative Diagnosis intermuscular abscess Procedure & Operative Findings Date of Procedure 08/10/17 Procedure Performed/Findings incision and drainage right foot intermuscular abscess, with exploration of right foot wound Anesthesia Type gen Estimated Blood Loss Estimated blood loss (mL): min Specimens/Packing Specimens Removed culture abscess Packin/ inch iodoform gauze AYAKA GRACIA DO Aug 10, 2017 17:47
[2017-08-10] MEDS ORDERED: ACHD5005 PO (17:48)
--- NOTE | 2017-08-10 17:51 | Discharge Inst-Simple/Standard ---
Discharge Inst-Standard Discharge Medications New, Converted or Re-Newed RX: RX on Chart Patient Instructions/Follow Up Plan of Care/Instructions/FU: See Daniela in Dr. Rios's office tomorrow for wound care. See. Dr. Rios 1 week. Activity as Tolerated: Yes Discharge Diet: Regular Diet Other Inst to Patient Follow up Appt: Make appointment for [address] Rios's nurse tomorrow for wound care, bring packing with you. Instructions: No lifting greater than 10 pounds. No strenuous activity. May shower in 24 hours, no tub bath or soaking. Use incentive spirometer at home as directed. No Smoking Skin/Wound Care: Change dressing daily and as needed. Irrigate with saline prior to packing. Symptoms to Report: Appetite Changes, Extremity Discoloration, Numbness/Tingling, Swelling Increased , Bleeding Excessive, Eyesight Changes, Pain Increased, Urine Color Change, Constipation(Persistent), Fever over 101 degree F, Pain/Pressure in chest, Urinating Difficulty, Cough Up/Vomit Blood, Heart Beat Irreg/Pounding, Pain/ Pressure in jaw, Vaginal Bleeding Increase, Cramps in feet or legs, Lightheadedness, Pain/Pressure in shoulder, Diarrhea(Persistent), Memory Changes Suddenly, Questions/Concerns, Weight gain consecutive days, Dizziness/ Fainting, Nausea/Vomiting, Shortness of Breath, Weight gain over 2 pounds If questions or concerns contact your physician Or seek help at emergency department. AYAKA RIOS DO Aug 10, 2017 17:51
[2017-08-10] MEDS ORDERED: NEO/POLY/BAC (NEOSPORIN) OINT 15 GM TUBE ONE (17:57)
[2017-08-10] MEDS ORDERED: HYDROcodone/APAP 5 MG/325 MG (LORTAB) TAB PO PRN (18:15)
[2017-08-10] MEDS ORDERED: HYDROcodone/APAP 5 MG/325 MG (LORTAB) TAB ONE (18:17)
[2017-08-10 18:35] VITALS: BP 151/85
[2017-08-10 19:15] VITALS: BP 151/86
[2017-08-10 19:30] VITALS: BP 151/86
--- NOTE | 2017-08-11 02:29 | OPERATIVE REPORT ---
DATE OF SERVICE: 08/10/2017 PREOPERATIVE DIAGNOSIS: Foreign body, right foot. POSTOPERATIVE DIAGNOSIS: Intramuscular abscess, right foot. PROCEDURES: Incision and drainage of right foot abscess and exploration of right foot wound. SURGEON: Ayaka Rios DO. ANESTHESIA: General. ESTIMATED BLOOD LOSS: Minimal. COMPLICATIONS: None. INDICATIONS: The patient is a 37-year-old female who approximately one week ago stepped on a toothpick, which got broken off in her foot. This was removed, but she thought there may be a portion still remaining within the foot. Over the week, her pain has increased significantly and she went to the emergency department last night to have it evaluated. She was sent to my office this afternoon for further evaluation. The patient was explained risks and benefits of procedure and wished to proceed with procedure. Consent was signed in the chart. PROCEDURE: The patient was taken to the operating suite. She was prepped and draped in sterile fashion. Surgical pause was performed. Over the area of the appearance of foreign body, a 15-blade scalpel was used to make an incision. Purulent material erupted and culture was obtained. There was significant amount of purulent material. The subcutaneous tissues were continued to be spread and no foreign body was able to be visualized. Still, there was some fluctuant area that the muscle was divided and more purulent material erupted from the plantar surface of the foot. There is a large abscess, the incision was opened up further and also dividing some of the muscle. The wound was irrigated with copious amounts of irrigation. The wound was completely explored finding no foreign body. Again, the wound was irrigated with copious amounts of irrigation and the wound was then packed with quarter-inch iodoform gauze. The area was washed and dried and sterile bandage was applied. The patient tolerated the procedure well without any complications. She was taken to the recovery room in stable condition. Job ID: [id number] DocumentID: [id number] Dictated Date: 08/10/2017 18:32:52 Paper Baler Date: 08/11/2017 02:28:51 Dictated By: AYAKA RIOS DO [facility]
== END 2017-08-10 19:30 | disposition home or self-care (01) ==
LOC: SDC 15:30
PROVIDERS: ATTEND Surgery
DX: L02.611 Cutaneous abscess of right foot (principal); I10 Essential (primary) hypertension; F17.210 Nicotine dependence, cigarettes, uncomplicated; Z79.899 Other long term (current) drug therapy; Z11.2 Encounter for screening for other bacterial diseases
CPT/HCPCS: 84703; 87070; 87075; 87077; 87081; 87205

== ENCOUNTER 2019-02-06 20:25 | Emergency (ER) | payer SELFPAY ==
[~2019-02-06] VITALS: Ht 177 cm; Wt 113.0 kg
[~2019-02-06 20:25] MED LIST changes: +ACHD5005 PO; +HYDR12.56 PO; +MULT-974 PO; +NF-ADXR10C PO
[2019-02-06] MEDS ORDERED: AMOXICILLIN 500 MG (POLYMOX) CAP PO STA (20:35)
[2019-02-06] MEDS ORDERED: BUPIVACAINE 0.5% 30 ML (SENSORCAINE) VIAL ONE (20:38)
[2019-02-06 20:44] VITALS: BP 122/81
[2019-02-06] MEDS ORDERED: FLUC150T PO (20:44)
[2019-02-06] MEDS ORDERED: AMOX500C2 PO (20:44)
--- NOTE | 2019-02-06 20:44 | ED EENT ---
History of Present Illness General Chief Complaint: Dental Problems/Pain Stated Complaint: TOOTH ACHE Source: patient Exam Limitations: no limitations History of Present Illness Date Seen by Provider: Feb 06, 2019 Time Seen by Provider: 20:41 Initial Comments To ER with left upper molar pain for the past few days, getting progressively worse. Timing/Duration: abrupt Severity: moderate Location: dental Prearrival Treatment: no prearrival treatment Associated Symptoms: denies symptoms Allergies and Home Medications Allergies Coded Allergies: No Known Drug Allergies (Unverified , 11/09/11) Home Medications Amoxicillin 500 Mg Capsule, 500 MG PO TID Prescribed by: JENNYFER RODRIGUEZ on 02/06/192043 Dextroamphetamine/Amphetamine 10 Mg Cap.er.24h, 10 MG PO DAILY, (Reported) PT STATES SHE TYPICALLY TAKES THIS MED EVERY OTHER DAY Diazepam 5 Mg Tablet, 5 MG PO DAILY PRN for ANXIETY, (Reported) Fluconazole 150 Mg Tablet, 150 MG PO DAILY Prescribed by: JENNYFER RODRIGUEZ on 02/06/192043 Hydrochlorothiazide 12.5 Mg Tablet, 12.5 MG PO DAILY, (Reported) Hydrocodone Bit/Acetaminophen 1 Tab Tab, 1 TAB PO Q4H PRN Prescribed by: AYAKA GRACIA on 08/10/17 1748 Multivitamin 1 Each Tablet, 1 EACH PO DAILY, (Reported) Sulfamethoxazole/Trimethoprim 1 Each Tablet, 2 EACH PO BID Prescribed by: CARLENE LOVE on 08/09/17 2596 Patient Home Medication List Home Medication List Reviewed: Yes Review of Systems Review of Systems Constitutional: see HPI Eyes: No Symptoms Reported Ears: No Symptoms Reported Nose: no symptoms reported Mouth: see HPI Throat: see HPI Respiratory: no symptoms reported Cardiovascular: no symptoms reported Musculoskeletal: no symptoms reported Past Xnjpbtn-Ndtzfo-Inksna Hx Patient Social History Type Used: Cigarettes Recent Foreign Travel: No Contact w/Someone Who Travel: No Recent Hopitalizations: No Seasonal Allergies Seasonal Allergies: No Past Medical History Surgeries: Yes (l knee , r elbow, r rotoar cuff, bilat carpal tunnel) Tonsillectomy, Tubal Ligation Respiratory: No Cardiac: Yes Hypertension Neurological: No Reproductive Disorders: No 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 0.0oz. 104.492045tz; 33.0 BMI Method:Stated General Appearance: WD/WN, no apparent distress Eyes: bilateral eye normal inspection, bilateral eye PERRL, bilateral eye EOMI Ears: bilateral ear auricle normal, bilateral ear canal normal, bilateral ear TM normal Nose: normal inspection, active bleeding Mouth/Throat: pharynx normal, dental tenderness; No mandibular swelling, No maxillary swelling Neck: non-tender, full range of motion Cardiovascular: regular rate, rhythm, no murmur Respiratory: no respiratory distress, no accessory muscle use Gastrointestinal: soft Neurologic/Psychiatric: alert, normal mood/affect, oriented x 3 Skin: normal color, warm/dry Progress/Results/Core Measures Results/Orders My Orders Orders - JENNYFER RODRIGUEZ APRN Amoxicillin Capsule (Polymox Capsule) (02/06/19 20:35) Bupivacaine 0.5% W/Epi Inj (Sensorcaine (02/06/19 20:45) Bupivacaine 0.5% Injection (Sensorcaine (02/06/19 20:45) Bupivacaine 0.5% Injection (Sensorcaine (02/06/19 20:38) Medications Given in ED Current Medications Medications Dose Ordered Sig/Leonard Route Start Time Stop Time Status Last Admin Dose Admin Bupivacaine HCl 1 ml ONCE ONCE INJ 02/06/19 20:45 02/06/19 20:46 DC 02/06/19 20:47 1 ML Vital Signs/I&O 02/06/19 02/06/19 20:38 20:44 Temp 35.9 Pulse 98 98 Resp 14 14 B/P (MAP) 122/81 (95) 122/81 Pulse Ox 99 99 O2 Delivery Room Air Room Air Departure Communication (Admissions) Offered a nerve block, she would like to have this done. Proceed with posterior superior alveolar nerve block. Impression Primary Impression: Dental caries Additional Impression: Pain, dental Disposition: 01 HOME, SELF-CARE Condition: Stable Departure-Patient Inst. Decision time for Depature: 20:42 Referrals: DANIELLE NASCIMENTO DO (PCP) Primary Care Physician BEN GABRIEL (Family) Primary Care Physician Patient Instructions: Dental Pain (DC) Add. Discharge Instructions: Antibiotic as directed, Tylenol and appropriate for pain control Return to ER for any concerns. See her dentist this week All discharge instructions reviewed with patient and/or family. Voiced understanding. Scripts Fluconazole (Diflucan) 150 Mg Tablet 150 MG PO DAILY, #2 TAB Prov: JENNYFER RODRIGUEZ APRN 02/06/19 Amoxicillin (Amoxicillin) 500 Mg Capsule 500 MG PO TID, #21 CAP 0 Refills Prov: JENNYFER RODRIGUEZ APRN 02/06/19 JENNYFER RODRIGUEZ APRN Feb 06, 2019 20:44 POS
[2019-02-06] MEDS ORDERED: BUPIVACAINE 0.5% 30 ML (SENSORCAINE) VIAL INJ ONE (20:45)
[2019-02-06] MEDS ORDERED: BUP/EPI 0.5% 1:200,000 (SENSORCAINE) 30 ML VIAL INJ ONE (20:45)
== END 2019-02-06 21:12 | disposition home or self-care (01) ==
LOC: EDUNIT# 20:25 → ER 20:27
DX: K02.9 Dental caries, unspecified (principal); I10 Essential (primary) hypertension; Z90.89 Acquired absence of other organs; Z98.51 Tubal ligation status
CPT/HCPCS: 99284

== ENCOUNTER 2019-09-02 14:31 | Emergency (ER) | payer SELFPAY ==
[~2019-09-02] VITALS: Ht 177.8 cm; Wt 109.0 kg
[~2019-09-02 14:31] MED LIST changes: +AMOX500C2 PO; +DIAZ5TAB49 PO; +FLUC150T PO
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
--- NOTE | 2019-09-02 14:56 | Diagnostic Imaging Report ---
INDICATION: Pain to left forearm after a fall. FINDINGS: 2 views. The radius and ulna are intact. Elbow shows good alignment. No joint effusion. No radiopaque foreign body. IMPRESSION: Negative left forearm. Dictated by: Dictated on workstation # [id number]
[2019-09-02] MEDS ORDERED: MELO15TA14 PO (15:02)
[2019-09-02 15:07] VITALS: BP 156/70
--- OUTSIDE RECORDS SUMMARY | 2019-09-02 15:16 | XMS REPORT ---
Author Author Anika NÚÑEZ [facility] Address [address] [place] [address] Care Team Providers Care Senior Online Marketing Manager Name Role Phone JUAN NÚÑEZN Unavailable PROBLEMS Type Condition ICD9-CM Code [id number] Code Onset Dates Condition S tatus SNOMED Code Problem Generalized anxiety disorder F41.1 A ctive 44637283 Problem Attention deficit hyperactivity disorder (ADHD), combi emeli type F90.2 Active 482616150 Problem ADD (attention deficit disorder) F90.0 Active 523150394 Problem Essential hypertension I10 Active 10425689 ALLERGIES No Information ENCOUNTERS Encounter Location Date Diagnosis [facility] [address] [phone] July, [facility] [address] [id number] [address] [place] [phone] Jun, [facility] [address] [phone] Jun, [facility] [address] [id number] [address] [place] [phone] May, [facility] [address] [id number] [address] [place] [phone] Apr, Attention deficit hyperactiv ity disorder (ADHD), combined type F90.2 [facility] [address] [id number] [address] [place] [phone] Apr, [facility] [address] [id number] [address] [place] [phone] Apr, Generalized anxiety disorder F41.1 and Attention deficit hyperactivity disorder (ADHD), predominantly inattentive type F90.0 [facility] [id number] [place] [address], [place] [address] Sep, [facility] [address] [id number] [address] [place] [phone] Aug, [facility] [address] [facility] [id number] [address] [place] [phone] July, [facility] [address] [facility] [id number] [address] [place] [phone] Jun, Attention deficit hyperactiv ity disorder (ADHD), combined type F90.2 ; ADD (attention deficit disorder) F90.0 and Generalized anxiety disorder F41.1 [facility] [address] [id number] [address] [place] [phone] Apr, Attention deficit hyperactiv ity disorder (ADHD), combined type F90.2 [facility] [address] [facility] [id number] [address] [place] [phone] Mar, Attention deficit hyperactiv ity disorder (ADHD), combined type F90.2 [facility] [address] [id number] [address] [place] [phone] Jan, [facility] [address] [id number] [address] [place] [phone] Jan, Attention deficit hyperactiv ity disorder (ADHD), combined type F90.2 [facility] [address] [id number] [address] [place] [phone] Dec, [facility] [address] [id number] [address] [place] [phone] Nov, [facility] [address] [id number] [address] [place] [phone] Oct, [facility] [address] [id number] [address] [place] [phone] Oct, [facility] [address] [facility] [id number] [address] [place] [phone] Oct, [facility] [address] [id number] [address] [place] [phone] Sep, Acute pain of left knee M25. 562 [facility] [address] [id number] [address] [place] [phone] Sep, [facility] [address] [id number] [address] [place] [phone] Aug, [facility] [address] [id number] [address] [place] [phone] Aug, Attention deficit hyperactiv ity disorder (ADHD), combined type F90.2 [facility] [address] [id number] [address] [place] [phone] July, [facility] [address] [id number] [address] [place] [phone] Jun, [facility] [address] [id number] [address] [place] [phone] May, ADD (attention deficit disor erin) F90.0 [facility] [address] [id number] [address] [place] [phone] May, [facility] [address] [id number] [address] [place] [phone] May, [facility] [address] [facility] [id number] [address] [place] [phone] Apr, [facility] [address] [id number] [address] [place] [phone] Apr, [facility] [address] [id number] [address] [place] [phone] Apr, [facility] [address] [id number] [address] [place] [phone] Mar, [facility] [address] [id number] [address] [place] [phone] Mar, [facility] [address] [id number] [address] [place] [phone] Mar, [facility] [address] [facility] [id number] [address] [place] [phone] Mar, Attention deficit hyperactiv ity disorder (ADHD), combined type F90.2 [facility] [address] [facility] [id number] [address] [place] [phone] Feb, [facility] [address] [facility] [id number] [address] [place] [phone] Feb, Essential hypertension I10 ; History of vitamin D deficiency Z86.39 ; Joint pain M25.50 and Other specified counseling Z71.89 IMMUNIZATIONS No Known Immunizations SOCIAL HISTORY Never Assessed REASON FOR VISIT adderall 06/10/2017 PLAN OF CARE VITAL SIGNS MEDICATIONS Medication Instructions Dosage Frequency Start Date End Date Duration S allenus Adderall XR 10 mg Orally Once a day in the morning 1 capsule Jun, 28 days Active RESULTS No Results PROCEDURES [...]
--- OUTSIDE RECORDS SUMMARY | 2019-09-02 15:16 | XMS REPORT ---
Author Author Anika NÚÑEZ [facility] Address [address] [place] [address] Care Team Providers Care Advisory Internship Name Role Phone JUAN NÚÑEZN Unavailable PROBLEMS Type Condition ICD9-CM Code BBO49-CC Code Onset Dates Condition S tatus SNOMED Code Problem Generalized anxiety disorder F41.1 A ctive 05322149 Problem Attention deficit hyperactivity disorder (ADHD), combi emeli type F90.2 Active 311850253 Problem ADD (attention deficit disorder) F90.0 Active 402735932 Problem Essential hypertension I10 Active 88694670 ALLERGIES No Information ENCOUNTERS Encounter Location Date Diagnosis [facility] [address] [phone] July, [facility] [address] [id number] [address] [place] [phone] Jun, [facility] [address] [phone] Jun, [facility] [address] [id number] [address] [place] [phone] May, [facility] [address] [id number] [address] [place] [phone] Apr, Attention deficit hyperactiv ity disorder (ADHD), combined type F90.2 [facility] [address] [id number] [address] [place] [phone] Apr, [facility] [address] [id number] [address] [place] [phone] Apr, Generalized anxiety disorder F41.1 and Attention deficit hyperactivity disorder (ADHD), predominantly inattentive type F90.0 [facility] [id number] [place] [address], [place] [address] Sep, [facility] [address] [id number] [address] [place] [phone] Aug, [facility] [address] [facility] [id number] [address] [place] [phone] July, [facility] [address] [facility] [id number] [address] [place] [phone] Jun, Attention deficit hyperactiv ity disorder (ADHD), combined type F90.2 ; ADD (attention deficit disorder) F90.0 and Generalized anxiety disorder F41.1 [facility] [address] [id number] [address] [place] [phone] Apr, Attention deficit hyperactiv ity disorder (ADHD), combined type F90.2 [facility] [address] [facility] [id number] [address] [place] [phone] Mar, Attention deficit hyperactiv ity disorder (ADHD), combined type F90.2 [facility] [address] [id number] [address] [place] [phone] Jan, [facility] [address] [id number] [address] [place] [phone] Jan, Attention deficit hyperactiv ity disorder (ADHD), combined type F90.2 [facility] [address] [id number] [address] [place] [phone] Dec, [facility] [address] [id number] [address] [place] [phone] Nov, [facility] [address] [id number] [address] [place] [phone] Oct, [facility] [address] [id number] [address] [place] [phone] Oct, [facility] [address] [facility] [id number] [address] [place] [phone] Oct, [facility] [address] [id number] [address] [place] [phone] Sep, Acute pain of left knee M25. 562 [facility] [address] [id number] [address] [place] [phone] Sep, [facility] [address] [id number] [address] [place] [phone] Aug, [facility] [address] [id number] [address] [place] [phone] Aug, Attention deficit hyperactiv ity disorder (ADHD), combined type F90.2 [facility] [address] [id number] [address] [place] [phone] July, [facility] [address] [id number] [address] [place] [phone] Jun, [facility] [address] [id number] [address] [place] [phone] May, ADD (attention deficit disor erin) F90.0 [facility] [address] [id number] [address] [place] [phone] May, [facility] [address] [id number] [address] [place] [phone] May, [facility] [address] [facility] [id number] [address] [place] [phone] Apr, [facility] [address] [id number] [address] [place] [phone] Apr, [facility] [address] [id number] [address] [place] [phone] Apr, [facility] [address] [id number] [address] [place] [phone] Mar, [facility] [address] [id number] [address] [place] [phone] Mar, [facility] [address] [id number] [address] [place] [phone] Mar, [facility] [address] [facility] [id number] [address] [place] [phone] Mar, Attention deficit hyperactiv ity disorder (ADHD), combined type F90.2 [facility] [address] [facility] [id number] [address] [place] [phone] Feb, [facility] [address] [facility] [id number] [address] [place] [phone] Feb, Essential hypertension I10 ; History of vitamin D deficiency Z86.39 ; Joint pain M25.50 and Other specified counseling Z71.89 IMMUNIZATIONS No Known Immunizations SOCIAL HISTORY Never Assessed REASON FOR VISIT adderall 08/05/2017 PLAN OF CARE VITAL SIGNS MEDICATIONS Medication Instructions Dosage Frequency Start Date End Date Duration S tatus Adderall XR 10 mg Orally Once a day in the morning 1 capsule July, 07 days Active RESULTS No Results PROCEDURES No [...]
--- OUTSIDE RECORDS SUMMARY | 2019-09-02 15:16 | XMS REPORT ---
Author Author Anika NÚÑEZ [facility] Address [address] [place] [address] Care Team Providers Care Hose Tender Name Role Phone JUAN NÚÑEZN Unavailable PROBLEMS Type Condition ICD9-CM Code [id number] Code Onset Dates Condition S tatus SNOMED Code Problem Generalized anxiety disorder F41.1 A ctive 30805173 Problem Attention deficit hyperactivity disorder (ADHD), combi emeli type F90.2 Active 416297846 Problem ADD (attention deficit disorder) F90.0 Active [id number] Problem Essential hypertension I10 Active [id number] ALLERGIES No Information ENCOUNTERS Encounter Location Date Diagnosis [facility] [address] [id number] July, [facility] [address] [id number] [address] [place] [id number] Jun, [facility] [address] [id number] Jun, [facility] [address] [id number] [address] [place] [id number] May, [facility] [address] [id number] [address] [place] [phone] Apr, Attention deficit hyperactiv ity disorder (ADHD), combined type F90.2 [facility] [address] [id number] [address] [place] [id number] Apr, [facility] [address] [id number] [address] [place] [id number] Apr, Generalized anxiety disorder F41.1 and Attention deficit hyperactivity disorder (ADHD), predominantly inattentive type F90.0 [facility] [id number] [place] [address], [place] [address] Sep, [facility] [address] [id number] [address] [place] [phone] Aug, [facility] [address] [facility] [id number] [address] [place] [phone] July, [facility] [address] [facility] [id number] [address] [place] [phone] Jun, Attention deficit hyperactiv ity disorder (ADHD), combined type F90.2 ; ADD (attention deficit disorder) F90.0 and Generalized anxiety disorder F41.1 [facility] [address] [id number] [address] [place] [phone] Apr, Attention deficit hyperactiv ity disorder (ADHD), combined type F90.2 [facility] [address] [facility] [id number] [address] [place] [phone] Mar, Attention deficit hyperactiv ity disorder (ADHD), combined type F90.2 [facility] [address] [id number] [address] [place] [phone] Jan, [facility] [address] [id number] [address] [place] [phone] Jan, Attention deficit hyperactiv ity disorder (ADHD), combined type F90.2 [facility] [address] [id number] [address] [place] [id number] Dec, [facility] [address] [id number] [address] [place] [phone] Nov, [facility] [address] [id number] [address] [place] [phone] Oct, [facility] [address] [id number] [address] [place] [phone] Oct, [facility] [address] [facility] [id number] [address] [place] [phone] Oct, [facility] [address] [id number] [address] [place] [id number] Sep, Acute pain of left knee M25. 562 [facility] [address] [id number] [address] [place] [id number] Sep, [facility] [address] [id number] [address] [place] [id number] Aug, [facility] [address] [id number] [address] [place] [phone] Aug, Attention deficit hyperactiv ity disorder (ADHD), combined type F90.2 [facility] [address] [id number] [address] [place] [phone] July, [facility] [address] [id number] [address] [place] [phone] Jun, [facility] [address] [id number] [address] [place] [phone] May, ADD (attention deficit disor erin) F90.0 [facility] [address] [id number] [address] [place] [phone] May, [facility] [address] [id number] [address] [place] [phone] May, [facility] [address] [facility] [id number] [address] [place] [phone] Apr, [facility] [address] [id number] [address] [place] [id number] Apr, [facility] [address] [id number] [address] [place] [id number] Apr, [facility] [address] [id number] [address] [place] [id number] Mar, [facility] [address] [id number] [address] [place] [id number] Mar, [facility] [address] [id number] [address] [place] [phone] Mar, [facility] [address] [facility] [id number] [address] [place] [phone] Mar, Attention deficit hyperactiv ity disorder (ADHD), combined type F90.2 [facility] [address] [facility] [id number] [address] [place] [id number] Feb, [facility] [address] [facility] [id number] [address] [place] [phone] Feb, Essential hypertension I10 ; History of vitamin D deficiency Z86.39 ; Joint pain M25.50 and Other specified counseling Z71.89 IMMUNIZATIONS No Known Immunizations SOCIAL HISTORY Never Assessed REASON FOR VISIT medication PLAN OF CARE VITAL SIGNS MEDICATIONS Medication Instructions Dosage Frequency Start Date End Date Duration S tatus Adderall XR 10 mg Orally Once a day in the morning 1 capsule Apr, 28 days Active RESULTS No Results PROCEDURES [...]
--- OUTSIDE RECORDS SUMMARY | 2019-09-02 15:16 | XMS REPORT ---
Author Author [employer]K heating element win[employer] [facility] [place] Address [address] [address] Care Team Providers Care Senior Consultant Name Role Phone STEVEN BARONE Unavailable Unavailable BEN GABRIEL Unavailable Unavailable LACEY REDMAN Unavailable FISH HSIEH Unavailable Unavailable EVANGELIST SMITH Unavailable Unavailable RAMON DYER Unavailable ЮЛИЯMARLINLACEY Unavailable zzANTONY, LACEY Unavailable zzANTONY, LACEY Unavailable zzANTONY, LACEY Unavailable DANIELLE NASCIMENTO Unavailable NIYA, ROBERTO Unavailable NIYA, ROBERTO Unavailable NIYA, ROBERTO Unavailable NIYA, ROBERTO Unavailable NIYA, ROBERTO Unavailable AYAKA GRACIA DO Unavailable Unavailable NIYA, ROBERTO Unavailable DANIELLE NASCIMENTO PCP LUCIEN MILLAN Unavailable Unavailable JENNYFER RODRIGUEZ APRN Unavailable Unavailable MIHIR VASQUES, ASHLEY Aguilera Unavailable Unavailable Unavailable Unavailable Unavailable Unavailable Unavailable Unavailable Allergies The data below is from unstructured sources Allergen Type Severity Reaction Status Last Updated No Known Drug Allergies Active 11/09/11 No known allergies. Medications Medication Ingredient Drug Dose Dates Status Sig Sig Care Class(es) (Normalized) (Original) Provid er amoxicillin Amoxicillin Penicillin- 02-07-20 Complete no Uziel xicillin no 500 mg oral class 19 - d information Discontinued name capsule (1 Antibacteri 02-07-20 500 ORAL source.) al 19 - Three Times 12-01-20 A Day February 06, 2019 8:44pm (One-Time) 24 hr Amphetamine Central no no Dextroamphet n o amphetamine aspartate / Nervous informat information amine/Amp het name aspartate Amphetamine System ion amine Active 2.5 mg / Sulfate / Stimulant 10 ORAL amphetamine Dextroamphe Daily PT sulfate 2.5 tamine STATES SHE mg / saccharate TYPICALLY dextroamphe / TAKES THIS tamine Dextroamphe MED EVERY saccharate tamine OTHER DAY 2.5 mg / Sulfate dextroamphe tamine sulfate 2.5 mg extended release oral capsule (1 source.) fluconazole Fluconazole Azole 02-07-20 Complete no Fluconazo le no 150 mg oral Antifungal 19 - d information Discontin ued name tablet (1 02-07-20 150 ORAL source.) 19 - Daily 2 02-07-20 February 242018 8:44pm (One-Time) no Multivitami no no no Multivitamin no information n information informat information Active 1 name (1 source.) preparation ion ORAL Daily Problems Active Problems Problem Normalized Date Last Normalized Normalized Provider Fa cility Classification Problem(s) Recorded Problem Problem Sta tus Duration Other Abnormal Episodic Active no name no informatio n nutritional; weight gain endocrine; and metabolic disorders (2 sources.) NEGATED Acquired Episodic Active no name [facility] no absence of [place] information (7 other organs Hospital - sources.) [place] ([id number]) Skin and Cutaneous Episodic Active AYAKA GRACIA [facility] subcutaneous abscess of DO [place] tissue right foot Hospital - infections (9 [place] sources.) ([id number]) Immunizations Encounter for Episodic Active JULIANE LADD Via and screening screening for DO [place] for infectious other Hospital - disease (16 bacterial [place] sources.) diseases ([id number]) Translations: [ ENCOUNTER FOR IMMUNIZATION, ENCOUNTER FOR SCREENING FOR OTHER BACTER] Substance-rela Nicotine Chronic Active AYAKA GRACIA [facility] Via kye disorders dependence, DO [place] (9 sources.) cigarettes, Hospital - uncomplicated [place] ([id number]) Other Other long Episodic Active AYAKA GRACIA [facility] a aftercare (9 term (current) DO [place] sources.) drug therapy [facility] ([address]) Malaise and Other malaise Episodic Active no name no inf ormation fatigue (2 and fatigue sources.) NEGATED Pain in limb Episodic Active no name [facility] Via no Translations: [place] information (5 [ PAIN IN Hospital - sources.) RIGHT FOOT] [place] () Disorders of Pure Chronic Active no name no informa tion lipid hypercholester metabolism (2 [place] sources.) NEGATED Sprain of Episodic Active no name [facility] Via no ankle, [place] information (3 unspecified Hospital - sources.) site [place] () NEGATED Superficial Episodic Active no name [facility] Via no foreign body, [place] information (7 right lower Hospital - sources.) leg, initial [place] encounter () Menopausal Symptomatic Chronic Active no name no inform ation disorders (2 menopausal or sources.) female climacteric states NEGATED Tubal ligation Episodic Active no name [facility] Via no status [place] information (7 Hospital - sources.) [place] () Thyroid Unspecified Chronic Active no name no informa tion disorders (2 acquired sources.) hypothyroidism Nutritional Unspecified Chronic Active no name no infor mation deficiencies vitamin D (2 sources.) deficiency Translations: [ B-COMPLEX DEFIC NEC] Past or Other Problems Problem Normalized Date Last Normalized Normalized Provider Fa cility Classification Problem(s) Recorded Problem Problem Sta tus Duration NEGATED Exposure to no information no information no name [facility] Via no other [place] information (7 specified Hospital - sources.) factors, [place] initial () encounter NEGATED Other external no information no information no name [facility] Via no cause status [place] information (3 Hospital - sources.) [place] () NEGATED Overexertion no information no information no name [facility] Via no from sudden [place] information (3 strenuous Hospital - sources.) movement [place] () Other Pain in right Episodic Completed no name no infor mation connective foot tissue disease (5 sources.) Procedures The data below is from unstructured sources Procedure Date Ordered R elated Diagnosis Body Site MH Office Visit, Est Pt., Level 3 No v 2015 No procedure information available. Immunizations The data below is from unstructured sources No Known ImmunizationsNo immunization records.No immunization records. No Known Immunizations No Known Immunizations No Known Immunizations No Known Immunizations No Known Immunizations No Known Immunizations No Known Immunizations No Known Immunizations No Known Immunizations No Known Immunizations No Known Immunizations No Known Immunizations No Known Immunizations No Known Immunizations No Known Immunizations No Known Immunizations No Known Immunizations No Known Immunizations No Known Immunizations No Known Immunizations No Known Immunizations No Known Immunizations Results Test Name Value Interpretation Reference Range Date Time Fa cility (Normalized) (Normalized) (Medline Reference) laboratory on 2018-12-13 Albumin 4.1 g/dL (N) 3.4 - 5.4 g/dL [facility] [Mass/Vol] [facility] ([id number]) Albumin DL <= 20 0.7 mg/dL (N) 0.2 - 1.9 mg/dL Comm [facility] mg/L (U) [facility] [Mass/Vol] [facility] (80100) Albumin/Creatini 13 (N) [facility] l[facility] ne (U) [[facility] ratio] [facility] (39031) Albumin/Globulin 1.6 {ratio} (N) 1 - 2.5 {ratio} Comm [facility] [Mass ratio] [facility] (49098) ALP [Catalytic 118 U/L (H) 44 - 147 U/L [facility] activity/Vol] [facility] ([id number]) ALT [Catalytic 18 U/L (N) 4 - 40 U/L Pending [facility] To [facility] ealth activity/Vol] [facility] (16968) AST [Catalytic 14 U/L (N) 10 - 34 U/L [facility] activity/Vol] [facility] (38788) Basophils (Bld) 0.051 10*3/uL (N) 0 - 0.3 10*3/uL [facility] [#/Vol] [facility] (26728) Basophils/100 0.7 % (N) 0.5 - 1 % [facility] WBC (Bld) [facility] (87991) Bilirubin 0.3 mg/dL (N) 0.1 - 1.2 mg/dL [facility] [Mass/Vol] [facility] (11538) Calcium 9.5 mg/dL (N) 8.5 - 10.2 mg/dL [facility] [Mass/Vol] [facility] (81147) Chloride 101 mmol/L (N) 95 - 106 mmol/L [facility] [Moles/Vol] [facility] (69116) Cholesterol 213 mg/dL (H) 180 - 200 mg/dL [facility] [Mass/Vol] [facility] (14238) Cholesterol in 51 mg/dL (N) [facility]ly [facility] h HDL [Mass/Vol] [facility] (34169) Cholesterol in 144 mg/dL (H) 0 - 100 mg/dL [facility] LDL [Mass/Vol] [facility] (08137) Cholesterol non 162 mg/dL (H) [facility] HDL [Mass/Vol] [facility] (55412) Cholesterol.tota 4.2 {ratio} (N) [facility] lt l/Cholesterol in [facility] HDL [Mass ratio] [facility] (57127) CO2 [Moles/Vol] 31 mmol/L (N) 23 - 29 mmol/L [facility] (49065) Creatinine (U) 56 mg/dL (N) [facility] [Mass/Vol] [facility] (05522) Creatinine 0.85 mg/dL (N) [facility] [Mass/Vol] [facility] (00430) Eosinophils 0.504 10*3/uL (H) 0.05 - 0.5 [facility] (Bld) [#/Vol] 10*3/uL [facility] (01518) Eosinophils/100 6.9 % (N) 1 - 4 % [facility] WBC (Bld) [facility] (57362) Erythrocyte 13.0 % (N) 11.6 - 14.6 % [facility] distribution [facility] (RBC) [facility] [Ratio] (68815) Free T4 1.3 ng/dL (N) 0.9 - 2.2 ng/dL [facility] [Mass/Vol] [facility] (89574) GFR/1.73 sq M 100 (N) 90 - 120 Community [facility] predicted among mL/min/{1.73_m2} mL/min/{1.73_m2} [facility] MDRD [facility] (S/P/Bld) [Vol (28980) rate/Area] GFR/1.73 sq 86 (N) 90 - 120 [facility] M.predicted MDRD mL/min/{1.73_m2} mL/min/{1.73_m2} [facility] (S/P/Bld) [Vol [facility] rate/Area] (17901) Globulin (S) 2.5 g/dL (N) 2 - 3.5 g/dL [facility] [Mass/Vol] [facility] (13249) Glucose 79 mg/dL (N) 60 - 125 mg/dL [facility] [Mass/Vol] [facility] (89936) HbA1c (Bld) 5.1 (N) [facility] [Mass fraction] [facility] (67952) Hematocrit (Bld) 44.1 % (N) 36.1 - 50.3 % [facility] [Volume Center [facility] (54462) Hemoglobin (Bld) 14.8 g/dL (N) 12.1 - 17.2 g/dL [facility] [Mass/Vol] [facility] (94767) Lymphocytes 1.27 10*3/uL (N) 0.9 - 2.9 [facility] lth (Bld) [#/Vol] 10*3/uL [facility] (60087) Lymphocytes/100 17.4 % (N) 20 - 40 % [facility] WBC (Bld) [facility] (75337) MCH (RBC) 30.3 pg (N) 27 - 31 pg [facility] [Entitic mass] [facility] (04622) MCHC (RBC) 33.6 g/dL (N) 32 - 36 g/dL [facility] [Mass/Vol] [facility] (30564) MCV (RBC) 90.4 fL (N) 80 - 100 fL [facility] lt [Entitic vol] [facility] (18647) Monocytes (Bld) 0.35 10*3/uL (N) 0.3 - 0.9 [facility] [#/Vol] 10*3/uL [facility] (49916) Monocytes/100 4.8 % (N) 2 - 8 % [facility] WBC (Bld) [facility] (59733) Neutrophils 5.125 10*3/uL (N) 1.7 - 7 10*3/uL [facility] (Bld) [#/Vol] [facility] (25435) Neutrophils/100 70.2 % (N) 40 - 60 % [facility] WBC (Bld) [facility] (09269) Platelet mean 11.4 fL (N) 7.2 - 11.7 fL [facility] volume (Bld) [facility] [Entitic vol] [facility] (24928) Platelets (Bld) 217 10*3/uL (N) 150 - 450 [facility] [#/Vol] 10*3/uL [facility] (11054) Potassium 3.8 mmol/L (N) 3.7 - 5.2 mmol/L [facility] [Moles/Vol] [facility] (18562) Protein 6.6 g/dL (N) 6.4 - 8.3 g/dL [facility] [Mass/Vol] [facility] (00918) RBC (Bld) 4.88 10*6/uL (N) 4.2 - 6.1 [facility] lth [#/Vol] 10*6/uL [facility] (69611) Sodium 139 mmol/L (N) 135 - 145 mmol/L [facility] [Moles/Vol] [facility] (24397) Triglyceride 77 mg/dL (N) 0 - 150 mg/dL [facility] [Mass/Vol] [facility] (48217) TSH Qn 1.36 m[IU]/L (N) 0.4 - 4 m[IU]/L [facility] (68590) Urea nitrogen 10 mg/dL (N) 7 - 20 mg/dL [facility] [Mass/Vol] [facility] (11154) Urea NOT APPLICABLE (no code) [facility] nitrogen/Creatin [facility] [Mass ratio] [facility] (96513) WBC (Bld) 7.3 10*3/uL (N) 3.5 - 10.5 [facility] [#/Vol] 10*3/uL [facility] (90264) Vital Signs The data below is from unstructured sources Vital Response Date/Time Temperature (Fahrenheit) 97.6 degree s F (97.6 - 99.5) Temperature (Calculated Celsius) 36. 76711 degrees C (36.4 - 37.5) Temperature Source Temporal Pulse Rate (adult) 87 bpm (60 - 90) Respiratory Rate 20 bpm (12 - 24) O2 Sat by Pulse Oximetry 97 % (88 - 100) Blood Pressure 136/88 mm Hg Pain Pain Intensity 10 Height (Feet) 5 feet Height (Inches) 10 inches Height (Calculated Centimeters) 177. 957105 cm Weight (Pounds) 226 pounds Weight (Calculated Kilograms) 102.51 1877 kilograms Calculated BMI 32.42 Vital Response Date/Time Temperature (Fahrenheit) 97.2 degree s F (97.6 - 99.5) 08/09/2017 11:09pm Temperature (Calculated Celsius) 36. 88317 degrees C (36.4 - 37.5) 08/09/2017 11:09pm Temperature Source Tympanic 08/09/2017 11:09pm Pulse Rate (adult) 73 bpm (60 - 90) 08/09/2017 10:05pm Respiratory Rate 16 bpm (12 - 24) 08/09/2017 10:05pm O2 Sat by Pulse Oximetry 99 % (88 - 100) 08/09/2017 10:05pm Blood Pressure 133/79 mm Hg 08/09/2017 10:05pm Blood Pressure Mean 97 mm Hg (65 - 110) 08/09/2017 10:05pm Pain Numeric Pain Scale 10-Worst Possible Pain 08/09/2017 11:09pm Height (Feet) 5 feet 05/2017 10:05pm Height (Inches) 9.00 inches 08/09/2017 10:05pm Height (Calculated Centimeters) 175. 865195 cm 08/09/2017 10:05pm Height Method Stated 05/2017 10:05pm Weight (Pounds) 230 pounds 08/09/2017 10:05pm Weight (Calculated Grams) 380731.25 gm 08/09/2017 10:05pm Weight (Calculated Kilograms) 104.32 6246 kilograms 08/09/2017 10:05pm Weight Method Stated 05/2017 10:05pm Capillary Refill Capillary Refill Less Than 3 Seconds 08/09/2017 10:05pm Height 5 ft 9 in 018 10:05pm Weight 230 lb 08/09/2017 10:05pm Body Mass Index 34.0 kg/m^2 08/09/2017 10:05pm Vital Response Date/Time Temperature (Fahrenheit) 98.9 degree s F (97.6 - 99.5) 08/10/2017 7:30pm Temperature (Calculated Celsius) 37. 76471 degrees C (36.4 - 37.5) 08/10/2017 7:15pm Temperature Source Temporal 08/10/2017 7:30pm Pulse Rate (adult) 59 bpm (60 - 90) 08/10/2017 7:30pm Respiratory Rate 20 bpm (12 - 24) 08/10/2017 7:30pm O2 Sat by Pulse Oximetry 100 % (88 - 100) 08/10/2017 7:30pm Blood Pressure 151/86 mm Hg 08/10/2017 7:30pm Blood Pressure Mean 98 mm Hg (65 - 110) 08/10/2017 3:35pm Pain Numeric Pain Scale 4 7:30pm Pain Intensity 4 2017 7:15pm Height (Feet) 5 feet 06/2017 4:37pm Height (Inches) 10.00 inches 08/10/2017 4:37pm Height (Calculated Centimeters) 177. 860135 cm 08/10/2017 4:37pm Height Method Stated 05/2017 10:05pm Weight (Pounds) 230 pounds 08/10/2017 4:37pm Weight (Ounces) 0.0 oz 0 08/10/2017 4:37pm Weight (Calculated Grams) 613516.25 gm 08/10/2017 4:37pm Weight (Calculated Kilograms) 104.32 6246 kilograms 08/10/2017 4:37pm Calculated BMI 33.0 06/2017 4:37pm Weight Method Stated 05/2017 10:05pm Weight Measurement Method Standing Scale 08/10/2017 4:37pm Capillary Refill Capillary Refill Less Than 3 Seconds 08/09/2017 10:05pm Vital Reading Result Col lection Date/Time Vital Reading Result Col lection Date/Time Interventions No Information Plan of Treatment Normalized Care Care Detail Care Activity Date Care Provider F acility Activity Patient Education Dental Pain (DC) no information DANIELLE NASCIMENTO [phone] [facility] ([id number]) Patient referral no information no information DANIELLE NASCIMENTO [address] [facility] ([id number]) Goals Patient Goal Desired Goal no information no information Social History Normalized Code Original Code Date Value no information no information 05-22-2014 Denies Use no information no information 05-22-2014 No no information no information 02-06-2019 Cigarettes Sex Assigned At Sex Assigned At no information F emale Functional Status The data below is from unstructured sourcesNo functional status results.No functional status information available.No functional status information available.No functional status information available.No functional status information available.No Functional Status information availableNo Functional Status information available Mental Status The data below is from unstructured sourcesNo Mental Status Information Available Encounters Encounter Normalized Encounter Encounter Diagnosis Care Provi erin Organization Date Type 02-06-2019 Emergency department no information (no phone) [facility] patient visit Hospital (no phone) 2019 02-06-2019 Emergency department no information no name no organization name - patient visit 02-06-2019 NEGATED Emergency department no information no name no organization name 05-22-2014 patient visit - 05-22-2014 NEGATED Patient encounter no information no name no or ganization name 08-10-2017 - 08-10-2017 08-09-2017 Patient encounter no information no name no or ganization name 04-16-2017 Patient encounter no information no name no or ganization name 04-10-2017 Patient encounter no information no name no or ganization name NEGATED Patient encounter no information no name no or ganization name 10-10-2015 03-16-2012 Patient encounter no information no name no or ganization name 02-08-2019 Patient encounter no information no name no or ganization name procedure 12-13-2018 Patient encounter no information no name no or ganization name procedure 12-13-2018 Patient encounter no information no name no or ganization name procedure 08-10-2017 Patient encounter no information no name no or ganization name - procedure 08-10-2017 Medical Equipment The data below is from unstructured sourcesNo Medical Equipment Information available Payers Normalized Payer Value Unknown no information ([id number]) Evaluation note Note Type Note Facility Evaluation No Assessments Information Available A scension note [facility] ([id number]) Summary Purpose eClinicalWorks SubmissioneClinicalWorks SubmissioneClinicalWorks SubmissioneClinicalWorks SubmissioneClinicalWorks SubmissioneClinicalWorks SubmissioneClinicalWorks Submission Advance Directives Directive Response Recor ded Date/Time Advance Directives No 7:53pm Organ Donor No 05/22/14 7:53pm Resuscitation Status Full Code 05/22/14 7:53pm Directive Response Recor ded Date/Time Advance Directives No 10:05pm Organ Donor No 08/09/17 10:05pm Resuscitation Status Full Code 08/09/17 10:05pm Directive Response Recor ded Date/Time Advance Directives No 3:35pm Organ Donor No 08/10/17 3:35pm Resuscitation Status Full Code 08/10/17 3:35pm Advance Directive Response Recorded Date/Time Advance Directives No 2018 8:38pm Organ Donor No February 06, 2019 8:38pm Resuscitation Status Full Code February 06, 2019 8:38pm Discharge Instructions No hospital discharge instructions.No hospital discharge instruction information available.No hospital discharge instruction information available. Chief Complaint and Reason for Visit Chief Complaint Dental Problems/Pain Reason for Visit [id number] Additional Source Comments This clinical document has been generated using [employer] software that has been certified by the Office of the National Coordinator for Health Information Technology (ONC 15.99.04.3023.Diam.31.00.0.579749) and the National Committee for [employer] Cart [employer]r (NCQA, as an eMeasure certified technology). FOR RECORDS PERTAINING TO PATIENTS WHO ARE OR HAVE BEEN ENROLLED IN A CHEMICAL D EPENDENCY/SUBSTANCE ABUSE PROGRAM, SOME INFORMATION MAY BE OMITTED. This clinica l summary was aggregated from multiple sources. Caution should be exercised in using it in the provision of clinical care. This summary normalizes information from multiple sources, and as a consequence, information in this document may ma terially change the coding, format and clinical context of patient data. In yosvany tion, data may be omitted in some cases. CLINICAL DECISIONS SHOULD BE BASED ON T HE PRIMARY CLINICAL RECORDS. [employer] provides no warranty or guara ntee of the accuracy or completeness of information in this document.The followi ng information is based on time limited clinical information UNRECOGNIZED CONTENT PROVIDED BELOW FOR UNRECOGNIZED SECTION MEDICAL (GENERAL) HISTORY Type Description Date Medical History Hypertension Medical History Arthritis Medical History Chronic pain Medical History Seasonal allergies/f ood allergies Medical History ADHD Surgical History bilateral carpal tu nnel release Surgical History Right ulnar nerve release Surgical History Right tennis elbow repair Surgical History Right shoulder repair Surgical History Right knee fracture repai r Surgical History tonsillectomy Surgical History Tubal ligation Hospitalization History Food poisoning Hospitalization History past surgery
--- OUTSIDE RECORDS SUMMARY | 2019-09-02 15:16 | XMS REPORT | Continuity of Care Document ---
Demographics Preferred Language Unknown Marital Status Unknown Christianity Affiliation Unknown Race Unknown Ethnic Group Unknown Author Organization Unknown Address Unknown Phone Unavailable Allergies Active Description Code Type Severity Reaction Onset Reported/Identified Relationship to Patient Clinical Status Yes NO KNOWN DRUG ALLERGIES UNKNOWN NO KNOWN DRUG ALLERG Yes No Known Drug Allergies [id number] Drug Allergy Unknown N/A 11/09/2011 Medications There is no data. Problems Date Dx Coded Attending Type Code Diagnosis Diagnosed By 11/09/2011 Ot 382.9 OTIT IS MEDIA NOS 11/09/2011 Ot 388.70 ANUJA LGIA NOS 05/22/2014 Ot 729.5 PAIN IN LIMB 05/22/2014 Ot 845.00 SPR AIN OF ANKLE NOS 05/22/2014 Ot E000.8 OTH ER EXTERNAL CAUSE STATUS 05/22/2014 Ot E927.0 OVE REXERTION FROM SUDDEN STRENUOUS MOVEM 10/10/2015 Ot 719.06 WERO NT EFFUSION- L/LEG 10/10/2015 Ot 719.46 WERO NT PAIN-L/LEG 10/10/2015 Ot 244.9 HYPO THYROIDISM NOS 10/10/2015 Ot 278.00 OBE SITY, NOS 10/10/2015 Ot 627.2 SYMP T MENOPAUSE OR FEMALE CLIMACTERIC ST 10/10/2015 Ot 782.3 EDEMA 10/10/2015 Ot 244.9 HYPO THYROIDISM NOS 10/10/2015 Ot 266.2 B-CO MPLEX DEFIC NEC 10/10/2015 Ot 268.9 ANUSHA MIN D DEFICIENCY NOS 10/10/2015 Ot 272.0 PURE HYPERCHOLESTEROLEM 10/10/2015 Ot 627.2 SYMP T MENOPAUSE OR FEMALE CLIMACTERIC ST 10/10/2015 Ot 780.79 OTH MALAISE FATIGUE 10/10/2015 Ot 783.1 ABNO RMAL WEIGHT GAIN 10/25/2015 MADBEN Bradford L LOOM TUNER Ot M25.562 PAIN IN LEFT KNEE 08/09/2017 Ot 244.9 HYPO THYROIDISM NOS 08/09/2017 Ot 266.2 B-CO MPLEX DEFIC NEC 08/09/2017 Ot 268.9 ANUSHA MIN D DEFICIENCY NOS 08/09/2017 Ot 272.0 PURE HYPERCHOLESTEROLEM 08/09/2017 Ot 627.2 SYMP T MENOPAUSE OR FEMALE CLIMACTERIC ST 08/09/2017 Ot 780.79 OTH MALAISE FATIGUE 08/09/2017 Ot 783.1 ABNO RMAL WEIGHT GAIN 08/09/2017 BEN GABRIEL LOOM TUNER Ot M25.562 PAIN IN LEFT KNEE 08/09/2017 CARLENE LOVE MD Ot I10 ESSENTIAL (PRIMARY) HYPERTENSION 08/09/2017 CARLENE LOVE MD Ot M79.671 PAIN IN RIGHT FOOT 08/09/2017 CARLENE LOVE MD Ot S80.851A SUPERFICIAL FOREIGN BODY, RIGHT LOWER LE 08/09/2017 CARLENE LOVE MD Ot X58.XXXA EXPOSURE TO OTHER SPECIFIED FACTORS, INI 08/09/2017 CARLENE LOVE MD Ot Z23 ENCOUNTER FOR IMMUNIZATION 08/09/2017 CARLENE LOVE MD Ot Z90. 89 ACQUIRED ABSENCE OF OTHER ORGANS 08/09/2017 CARLENE LOVE MD Ot Z98. 51 TUBAL LIGATION STATUS 08/10/2017 AYAKA GRACIA DO Ot F17.210 NICOTINE DEPENDENCE, CIGARETTES, UNCOMPL 08/10/2017 AYAKA GRACIA DO Ot I10 ESSENTIAL (PRIMARY) HYPERTENSION 08/10/2017 AYAKA GRACIA DO Ot L02.611 CUTANEOUS ABSCESS OF RIGHT FOOT 08/10/2017 AYAKA GRACIA DO Ot Z11. 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 89 ACQUIRED ABSENCE OF OTHER ORGANS 08/11/2017 CARLENE LOVE MD Ot Z98. 51 TUBAL LIGATION STATUS 08/12/2017 AYAKA GRACIA DO Ot F17.210 NICOTINE DEPENDENCE, CIGARETTES, UNCOMPL 08/12/2017 AYAKA GRACIA DO Ot I10 ESSENTIAL (PRIMARY) HYPERTENSION 08/12/2017 AYAKA GRACIA DO Ot L02.611 CUTANEOUS ABSCESS OF RIGHT FOOT 08/12/2017 AYAKA GRACIA DO Ot Z11. 2 ENCOUNTER FOR SCREENING FOR OTHER BACTER 08/12/2017 AYAKA GRACIA DO Ot Z79.899 OTHER SENIOR CARE (CURRENT) DRUG THERAPY 08/12/2017 AYAKA GRACIA DO Ot F17.210 NICOTINE DEPENDENCE, CIGARETTES, UNCOMPL 08/12/2017 AYAKA GRACIA DO Ot I10 ESSENTIAL (PRIMARY) HYPERTENSION 08/12/2017 AYAKA GRACIA DO Ot L02.611 CUTANEOUS ABSCESS OF RIGHT FOOT 08/12/2017 AYAKA GRACIA DO Ot Z11. 2 ENCOUNTER FOR SCREENING FOR OTHER BACTER 08/12/2017 AYAKA GRACIA DO Ot Z79.899 OTHER SENIOR CARE (CURRENT) DRUG THERAPY 08/12/2017 AYAKA GRACIA DO Ot F17.210 NICOTINE DEPENDENCE, CIGARETTES, UNCOMPL 08/12/2017 AYAKA GRACIA DO Ot I10 ESSENTIAL (PRIMARY) HYPERTENSION 08/12/2017 AYAKA GRACIA DO Ot L02.611 CUTANEOUS ABSCESS OF RIGHT FOOT 08/12/2017 AYAKA GRACIA DO Ot Z11. 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 2 ENCOUNTER FOR SCREENING FOR OTHER BACTER 08/12/2017 AYAKA GRACIA DO Ot Z79.899 OTHER SENIOR CARE (CURRENT) DRUG THERAPY 08/12/2017 Ot 244.9 HYPO THYROIDISM NOS 08/12/2017 Ot 266.2 B-CO MPLEX DEFIC NEC 08/12/2017 Ot 268.9 ANUSHA MIN D DEFICIENCY NOS 08/12/2017 Ot 272.0 PURE HYPERCHOLESTEROLEM 08/12/2017 Ot 627.2 SYMP T MENOPAUSE OR FEMALE CLIMACTERIC ST 08/12/2017 Ot 780.79 OTH MALAISE FATIGUE 08/12/2017 Ot 783.1 ABNO RMAL WEIGHT GAIN 08/12/2017 BEN GABRIEL LOOM TUNER Ot M25.562 PAIN IN LEFT KNEE 08/15/2017 CARLENE LOVE MD Ot I10 ESSENTIAL (PRIMARY) HYPERTENSION 08/15/2017 CARLENE LVOE MD Ot M79.671 PAIN IN RIGHT FOOT 08/15/2017 CARLENE LOVE MD Ot S80.851A SUPERFICIAL FOREIGN BODY, RIGHT LOWER LE 08/15/2017 CARLENE LOVE MD Ot X58.XXXA EXPOSURE TO OTHER SPECIFIED FACTORS, INI 08/15/2017 CARLENE LOVE MD Ot Z23 ENCOUNTER FOR IMMUNIZATION 08/15/2017 CARLENE LOVE MD Ot Z90. 89 ACQUIRED ABSENCE OF OTHER ORGANS 08/15/2017 CARLENE LOVE MD Ot Z98. 51 TUBAL LIGATION STATUS Procedures There is no data. Results Test Result Range Complete blood count (CBC) with automate d white blood cell (WBC) differential - 08/09/17 23:02 Blood leukocytes automated count (number/volume) 10.8 10*3/uL 4.3-11.0 Blood erythrocytes automated count (number/volume) 4.71 10*6/uL 4.35-5.85 Venous blood hemoglobin measurement (mass/volume) 13.4 g/dL 11.5-16.0 Blood hematocrit (volume fraction) 40 % 35-52 Automated erythrocyte mean corpuscular volume 86 [ foz_us] 80-99 Automated erythrocyte mean corpuscular h emoglobin (mass per erythrocyte) 29 pg 25-34 Automated erythrocyte mean corpuscular h emoglobin concentration measurement (mass/volume) 33 g/dL 32-36 Automated erythrocyte distribution width ratio 14. 2 % 10.0- 14.5 Automated blood platelet count (count/volume) 238 10*3/uL 130-400 Automated blood platelet mean volume measurement 11.2 [foz_us] 7.4-10.4 Automated blood neutrophils/100 leukocytes 85 % 42-75 Automated blood lymphocytes/100 leukocytes 9 % 12-44 Blood monocytes/100 leukocytes 5 % 0-12 Automated blood eosinophils/100 leukocytes 1 % 0-10 Automated blood basophils/100 leukocytes 0 % 0-10 Blood neutrophils automated count (number/volume) 9.2 10*3 1.8-7.8 Blood lymphocytes automated count (number/volume) 1.0 10*3 1.0-4.0 Blood monocytes automated count (number/volume) 0. 5 10*3 0.0-1.0 Automated eosinophil count 0.1 10*3/uL 0 .0-0.3 Automated blood basophil count (count/volume) 0.0 10*3/uL 0.0-0.1 Comprehensive metabolic panel - 08/09/17 23:02 Serum or plasma sodium measurement (moles/volume) 140 mmol/L 135-145 Serum or plasma potassium measurement (moles/volume) 3.9 mmol/L 3.6-5.0 Serum or plasma chloride measurement (moles/volume) 103 mmol/L 98-107 Carbon dioxide 26 mmol/L 21-32 Serum or plasma anion gap determination (moles/volume) 11 mmol/L 5-14 Serum or plasma urea nitrogen measurement (mass/volume ) 12 mg/dL 7-18 Serum or plasma creatinine measurement (mass/volume) 0.85 mg/dL 0.60-1.30 Serum or plasma urea nitrogen/creatinine mass ratio 14 NRG Serum or plasma creatinine measurement w ith calculation of estimated glomerular filtration rate > NRG Serum or plasma glucose measurement (mass/volume) 100 mg/dL 70-105 Serum or plasma calcium measurement (mass/volume) 9.4 mg/dL 8.5-10.1 Serum or plasma total bilirubin measurement (mass/volu me) 0.4 mg/dL 0.1-1.0 Serum or plasma alkaline phosphatase mariama surement (enzymatic activity/volume) 115 U/L 40-136 Serum or plasma aspartate aminotransfera se measurement (enzymatic activity/volume) 10 U/L 5-34 Serum or plasma alanine aminotransferase measurement (enzymatic activity/volume) 13 U/L 0-55 Serum or plasma protein measurement (mass/volume) 7.2 g/dL 6.4-8.2 Serum or plasma albumin measurement (mass/volume) 4.0 g/dL 3.2-4.5 Urine beta human chorionic gonadotropin (hCG) measurement - 08/10/17 15:40 Urine beta human chorionic gonadotropin (hCG) measurem ent NEGATIVE NEGATIVE Methicillin resistant Staphylococcus aur eus (MRSA) screening culture - 08/10/17 15:55 Methicillin resistant Staphylococcus aureus (MRSA) scr eening culture NEG NRG Bacteria identification in isolate by an aerobe culture - 08/10/17 17:03 Bacteria identification in isolate by anaerobe culture NOANA NRG Gram stain microscopy - 08/10/17 17:03 GRAM STAIN RESULT FEW GRAM POSITIVE COCCI NRG Bacteria identification in wound by cult ure - 08/10/17 17:03 Bacteria identification in wound by culture [id number] NRG FREE TEXT EXTERNAL OF THE STREP. ANGINOSUS GROUP NRG QUANTITY OF GROWTH Scant Growth NRG A1C - 12/13/18 10:32 HEMOGLOBIN A1c 5.1 % of total Hgb <5.7 Encounters ACCT No. Visit Date/Time Discharge Status Pt. Type Provider Facility Loc./Unit Complaint [id number] 03/05/2018 01:15:53 Document Registration [id number] 02/06/2019 20:27:00 019 21:12:00 DIS Emergency JENNYFER RODRIGUEZ RESIDENTIAL PLUMBER [facility] ER TOOTH ACHE [id number] 08/10/2017 15:30:00 018 19:30:00 DIS Outpatient AYAKA GRACIA DO [facility] SDC FOREIGN BODY BOTTOM OF RIGHT FOOT [id number] 08/09/2017 20:50:00 018 23:56:00 DIS Outpatient CARLENE LOVE MD [facility] ER TOOTHPICK IN R FOOT ON THURSDAY, POSS INFECTION [id number] 10/10/2015 11:05:00 016 23:59:59 CLS Outpatient BEN GABRIEL LOOM TUNER [facility] RAD ACUTE PAIN [id number] 05/22/2014 19:48:00 Document Registration [id number] 03/16/2012 12:47:00 Document Registration [id number] 11/09/2011 20:30:00 Document Registration [id number] 11/04/2011 10:10:00 Document Registration [id number] 11/22/2010 10:14:00 Document Registration [id number] 02/08/2019 14:45:00 02/08/2019 23:59:5 9 [facility] Outpatient LUCIEN MILLAN [facility] [id number] 12/13/2018 09:40:00 Document Registration
--- OUTSIDE RECORDS SUMMARY | 2019-09-02 15:16 | XMS REPORT ---
Author Author Anika NÚÑEZ [facility] Address [address] [place] [address] Care Team Providers Care Accounts Payable Accountant Name Role Phone JUAN NÚÑEZN Unavailable PROBLEMS Type Condition ICD9-CM Code [id number] Code Onset Dates Condition S tatus SNOMED Code Problem Generalized anxiety disorder F41.1 A ctive 48240407 Problem Attention deficit hyperactivity disorder (ADHD), combi emeli type F90.2 Active 012476015 Problem ADD (attention deficit disorder) F90.0 Active 332139563 Problem Essential hypertension I10 Active [id number] ALLERGIES No Information ENCOUNTERS Encounter Location Date Diagnosis [facility] [address] [phone] July, [facility] [id number] [place] [phone] Jun, [facility] [address] [phone] Jun, [facility] [address] [phone] May, [facility] [address] [id number] [address] [place] [phone] Apr, Attention deficit hyperactiv ity disorder (ADHD), combined type F90.2 [facility] [address] [id number] [address] [place] [phone] Apr, [facility] [address] [id number] [address] [place] [phone] Apr, Generalized anxiety disorder F41.1 and Attention deficit hyperactivity disorder (ADHD), predominantly inattentive type F90.0 [facility] [id number] [place] [address], [place] [address] Sep, [facility] [address] [id number] [address] [place] [phone] Aug, [facility] [address] [facility] [id number] [address] [place] [phone] July, [facility] [address] [facility] [id number] [address] [place] [phone] Jun, Attention deficit hyperactiv ity disorder (ADHD), combined type F90.2 ; ADD (attention deficit disorder) F90.0 and Generalized anxiety disorder F41.1 [facility] [address] [id number] [address] [place] [phone] Apr, Attention deficit hyperactiv ity disorder (ADHD), combined type F90.2 [facility] [address] [facility] [id number] [address] [place] [phone] Mar, Attention deficit hyperactiv ity disorder (ADHD), combined type F90.2 [facility] [address] [id number] [address] [place] [phone] Jan, [facility] [address] [id number] [address] [place] [phone] Jan, Attention deficit hyperactiv ity disorder (ADHD), combined type F90.2 [facility] [address] [id number] [address] [place] [phone] Dec, [facility] [address] [id number] [address] [place] [phone] Nov, [facility] [address] [id number] [address] [place] [phone] Oct, [facility] [address] [id number] [address] [place] [phone] Oct, [facility] [address] [facility] [id number] [address] [place] [phone] Oct, [facility] [address] [id number] [address] [place] [id number] Sep, Acute pain of left knee M25. 562 [facility] [address] [id number] [address] [place] [phone] Sep, [facility] [address] [id number] [address] [place] [phone] Aug, [facility] [address] [id number] [address] [place] [phone] Aug, Attention deficit hyperactiv ity disorder (ADHD), combined type F90.2 [facility] [address] [id number] [address] [place] [phone] July, [facility] [address] [id number] [address] [place] [phone] Jun, [facility] [address] [id number] [address] [place] [phone] May, ADD (attention deficit disor erin) F90.0 [facility] [address] [id number] [address] [place] [phone] May, [facility] [address] [id number] [address] [place] [phone] May, [facility] [address] [facility] [id number] [address] [place] [phone] Apr, [facility] [address] [id number] [address] [place] [phone] Apr, [facility] [address] [id number] [address] [place] [phone] Apr, [facility] [address] [id number] [address] [place] [phone] Mar, [facility] [address] [id number] [address] [place] [phone] Mar, [facility] [address] [id number] [address] [place] [address] Mar, [facility] [address] [facility] [id number] [address] [place] [phone] Mar, Attention deficit hyperactiv ity disorder (ADHD), combined type F90.2 [facility] [address] [facility] [id number] [address] [place] [phone] Feb, [facility] [address] [facility] [id number] [address] [place] [phone] Feb, Essential hypertension I10 ; History of vitamin D deficiency Z86.39 ; Joint pain M25.50 and Other specified counseling Z71.89 IMMUNIZATIONS No Known Immunizations SOCIAL HISTORY Never Assessed REASON FOR VISIT adderall 05/13/2017 PLAN OF CARE VITAL SIGNS MEDICATIONS Medication Instructions Dosage Frequency Start Date End Date Duration S tatus Adderall XR 10 mg Orally Once a day in the morning 1 capsule May, 28 days Active RESULTS No Results PROCEDURES [...]
--- OUTSIDE RECORDS SUMMARY | 2019-09-02 15:16 | XMS REPORT ---
Author Author Anika NÚÑEZ [facility] Address [address] [place] [address] Care Team Providers Care Executive Creative Director Name Role Phone JUAN NÚÑEZN Unavailable PROBLEMS Type Condition ICD9-CM Code [id number] Code Onset Dates Condition S tatus SNOMED Code Problem Generalized anxiety disorder F41.1 A ctive 65305130 Problem Attention deficit hyperactivity disorder (ADHD), combi emeli type F90.2 Active 028125089 Problem ADD (attention deficit disorder) F90.0 Active 656121052 Problem Essential hypertension I10 Active 88905512 ALLERGIES No Information ENCOUNTERS Encounter Location Date Diagnosis [facility] [address] [id number] July, [facility] [id number] [address] [place] [phone] Jun, [facility] [address] [phone] Jun, [facility] [id number] [address] [place] [phone] May, [facility] [id number] [address] [place] [phone] Apr, Attention deficit hyperactiv ity disorder (ADHD), combined type F90.2 [facility] [address] [id number] [address] [place] [phone] Apr, [facility] [address] [id number] [address] [place] [phone] Apr, Generalized anxiety disorder F41.1 and Attention deficit hyperactivity disorder (ADHD), predominantly inattentive type F90.0 [facility] [id number] [place] [address], [place] [address] Sep, [facility] [address] [id number] [address] [place] [phone] Aug, [facility] [address] [facility] [id number] [address] [place] [phone] July, [facility] [address] [facility] [id number] [address] [place] [phone] Jun, Attention deficit hyperactiv ity disorder (ADHD), combined type F90.2 ; ADD (attention deficit disorder) F90.0 and Generalized anxiety disorder F41.1 [facility] [address] [id number] [address] [place] [phone] Apr, Attention deficit hyperactiv ity disorder (ADHD), combined type F90.2 [facility] [address] [facility] [id number] [address] [place] [phone] Mar, Attention deficit hyperactiv ity disorder (ADHD), combined type F90.2 [facility] [address] [id number] [address] [place] [phone] Jan, [facility] [address] [id number] [address] [place] [phone] Jan, Attention deficit hyperactiv ity disorder (ADHD), combined type F90.2 [facility] [address] [id number] [address] [place] [phone] Dec, [facility] [address] [id number] [address] [place] [phone] Nov, [facility] [address] [id number] [address] [place] [phone] Oct, [facility] [address] [id number] [address] [place] [phone] Oct, [facility] [address] [facility] [id number] [address] [place] [phone] Oct, [facility] [address] [id number] [address] [place] [phone] Sep, Acute pain of left knee M25. 562 [facility] [address] [id number] [address] [place] [phone] Sep, [facility] [address] [id number] [address] [place] [phone] Aug, [facility] [address] [id number] [address] [place] [phone] Aug, Attention deficit hyperactiv ity disorder (ADHD), combined type F90.2 [facility] [address] [id number] [address] [place] [phone] July, [facility] [address] [id number] [address] [place] [phone] Jun, [facility] [address] [id number] [address] [place] [phone] May, ADD (attention deficit disor erin) F90.0 [facility] [address] [id number] [address] [place] [phone] May, [facility] [address] [id number] [address] [place] [phone] May, [facility] [address] [facility] [id number] [address] [place] [phone] Apr, [facility] [address] [id number] [address] [place] [phone] Apr, [facility] [address] [id number] [address] [place] [id number] Apr, [facility] [address] [id number] [address] [place] [phone] Mar, [facility] [address] [id number] [address] [place] [id number] Mar, [facility] [address] [id number] [address] [place] [phone] Mar, [facility] [address] [facility] [id number] [address] [place] [phone] Mar, Attention deficit hyperactiv ity disorder (ADHD), combined type F90.2 [facility] [address] [facility] [id number] [address] [place] [phone] Feb, [facility] [address] [facility] [id number] [address] [place] [phone] Feb, Essential hypertension I10 ; History of vitamin D deficiency Z86.39 ; Joint pain M25.50 and Other specified counseling Z71.89 IMMUNIZATIONS No Known Immunizations SOCIAL HISTORY Never Assessed REASON FOR VISIT adderall 07/08/2017 PLAN OF CARE VITAL SIGNS MEDICATIONS Medication Instructions Dosage Frequency Start Date End Date Duration S tatus Adderall XR 10 mg Orally Once a day in the morning 1 capsule July, 28 days Active RESULTS No Results [...]
== END 2019-09-02 15:06 | disposition home or self-care (01) ==
LOC: EDUNIT# 14:31 → ER 14:33
DX: S50.12XA Contusion of left forearm, initial encounter (principal); I10 Essential (primary) hypertension; F17.210 Nicotine dependence, cigarettes, uncomplicated; W22.8XXA Striking against or struck by other objects, initial encounter
CPT/HCPCS: 73090

== ENCOUNTER 2021-04-09 10:55 | Emergency (ER) | payer SELFPAY ==
[~2021-04-09] VITALS: Ht 177.8 cm; Wt 109.9 kg
[~2021-04-09 10:55] MED LIST changes: +MELO15TA14 PO; -SULF1TAB35 PO; +SULF1TAB38 PO
[2021-04-09] MEDS ORDERED: oxyCODONE/APAP 5/325MG (PERCOCET 5) TABLET PO ONE (11:15)
--- NOTE | 2021-04-09 11:18 | Diagnostic Imaging Report ---
INDICATION: Right hand pain and swelling, dog bite. FINDINGS: 3 views of the right hand demonstrate no fracture or dislocation. Articular surfaces are normal. No unexpected radiopaque foreign body. IMPRESSION: Negative right hand. Dictated by: Dictated on workstation # [id number]
--- NOTE | 2021-04-09 11:28 | ED Upper Extremity ---
General Chief Complaint: Bite-Animal/Human/Insect Stated Complaint: RT HAND DOG BITE Nursing Triage Note: PT AMBULATE TO ROOM FS02 WITH C/O DOG BITE TO RIGHT HAND. Source: patient History of Present Illness Date Seen by Provider: Apr 09, 2021 Time Seen by Provider: 11:00 Initial Comments Patient is a 41-year-old left handed female presents with dog bite to extensor surface of right thumb base. Injury occurred just prior to ED arrival. Tetanus is up-to-date. The dog's rabies status is unknown. The animal bite occurred in [place]. Animal control was not contacted prior to ED arrival. Onset: just prior to arrival Pain/Injury Location: right thumb Method of Injury: incised Modifying Factors: Improves With Other Allergies and Home Medications Allergies Coded Allergies: No Known Drug Allergies (Unverified , 11/09/11) Patient Home Medication List Home Medication List Reviewed: Yes Dextroamphetamine/Amphetamine (Adderall Xr 10 mg Capsule) 10 Mg Cap.er.24h, 10 MG PO DAILY, (Reported) Entered as Reported by: GUILLERMINA LAGOS on 08/10/171715 Diazepam (Diazepam) 5 Mg Tablet, 5 MG PO DAILY PRN for ANXIETY, (Reported) Entered as Reported by: GUILLERMINA LAGOS on 08/10/171715 Fluconazole (Diflucan) 150 Mg Tablet, 150 MG PO DAILY Prescribed by: JENNYFER RODRIGUEZ on 02/06/192043 Hydrochlorothiazide (Hydrochlorothiazide) 12.5 Mg Tablet, 12.5 MG PO DAILY, (Reported) Entered as Reported by: GUILLERMINA LAOGS on 08/10/171711 Hydrocodone Bit/Acetaminophen (Lortab 5 Mg Tablet) 1 Tab Tab, 1 TAB PO Q4H PRN Prescribed by: AYAKA GRACIA on 08/10/17 1748 Meloxicam (Mobic) 15 Mg Tablet, 15 MG PO DAILY Prescribed by: KELIN PALACIO on 09/02/19 1502 Multivitamin (Multi-Vitamin Daily) 1 Each Tablet, 1 EACH PO DAILY, (Reported) Entered as Reported by: GUILLERMINA LAGOS on 08/10/171715 Review of Systems Constitutional: see HPI Skin: see HPI Past Xkmedui-Impzfg-Okvoaz Hx Patient Social History Tobacco Use?: Yes Tobacco type used: Cigarettes Smoking Status: Current Everyday Smoker Smokeless Tobacco Frequency: Never a User Use of E-Cig and/or Vaping dev: No Use of E-Cig and/or Vaping Solomon: Never a User Substance use?: No Alcohol Use?: No Pt feels they are or have been: No Seasonal Allergies Seasonal Allergies: No Past Medical History Surgeries: Yes (bilat knee scopes, r elbow, r rotator cuff, bilat carpal tunnel) Orthopedic, Tonsillectomy, Tubal Ligation Respiratory: No Cardiac: Yes Hypertension Neurological: No Reproductive Disorders: No 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 0.0oz. [id number]; 34.00 BMI Method:Stated General Appearance: mild distress Hand: Right, laceration (1.5 cm gaping deep laceration extensor surface of right thumb base,) Progress/Results/Core Measures Results/Orders My Orders Orders - BENNETT GONZALEZ DO Oxycodone/Apap 5/325mg Tablet (Percocet (04/09/21 11:15) Hand 3 View Right (04/09/21 11:04) Medications Given in ED Current Medications Medications Dose Ordered Sig/Leonard Route Start Time Stop Time Status Last Admin Dose Admin Oxycodone/ Acetaminophen 1 tab ONCE ONCE PO 04/09/21 11:15 04/09/21 11:16 DC 04/09/21 11:11 1 TAB Vital Signs/I&O 04/09/21 11:05 Temp 36.7 Pulse 83 Resp 19 B/P (MAP) 161/94 (116) O2 Delivery Room Air Blood Pressure Mean: 116 Departure Communication (Admissions) Laceration repair procedure note. Wound was extensively cleaned and irrigated. Single 4 single Ethilon suture was placed in the central portion of the laceration with loose edge approximation. Explicit and infection instructions provided. Patient verbalizes understanding agreement discharge instructions prior to departure. Impression Primary Impression: Dog bite of right hand Disposition: 01 HOME, SELF-CARE Condition: Stable Departure-Patient Inst. Decision time for Depature: 11:28 Referrals: LUCIEN MILLAN MD (PCP) Primary Care Physician Patient Instructions: Animal Bites ED Add. Discharge Instructions: Please fill antibiotics and take first dose after leaving the emergency department. Take 600 mg of ibuprofen for pain and hydrocodone as needed for additional relief. Return to the ED immediately if signs of infection. Follow- up with your PCP or return to the ED in 7 to 10 days for suture removal. All discharge instructions reviewed with patient and/or family. Voiced understanding. Scripts Fluconazole (Diflucan) 100 Mg Tablet 100 MG PO DAILY PRN, #2 TAB Prov: BENNETT GONZALEZ DO 04/09/21 Amoxicillin/Potassium Clav (Augmentin 875-125 Tablet) 1 Each Tablet 1 EACH PO BID, #14 TAB 0 Refills Prov: BENNETT GONZALEZ DO 04/09/21 Hydrocodone/Acetaminophen (Hydrocodone-Acetamin 5-325 mg) 1 Each Tablet 5 TAB PO Q4H PRN for PAIN-MODERATE (5-7), #5 TAB Prov: BENNETT GONZALEZ DO 04/09/21 BENNETT GONZALEZ DO Apr 09, 2021 11:27
[2021-04-09] MEDS ORDERED: AMOX-358 PO (11:31)
[2021-04-09] MEDS ORDERED: FLUC100T PO (11:31)
[2021-04-09] MEDS ORDERED: ACHD5005 PO (11:31)
[2021-04-09 11:41] VITALS: BP 153/88
== END 2021-04-09 11:41 | disposition home or self-care (01) ==
LOC: EDUNIT# 10:55 → ER FS 10:56
DX: S61.051A Open bite of right thumb without damage to nail, initial encounter (principal); I10 Essential (primary) hypertension; F17.210 Nicotine dependence, cigarettes, uncomplicated; W54.0XXA Bitten by dog, initial encounter
CPT/HCPCS: 73130

== ENCOUNTER → 2021-10-04 | Outpatient (CLI) | payer OTHER ==
[~2021-10-04] MED LIST changes: +AMOX-358 PO; +FLUC100T PO
--- NOTE | 2021-10-04 14:49 | Diagnostic Imaging Report ---
PROCEDURE: US Non-ob pelvis comp/trans. TECHNIQUE: Multiple realtime grayscale images were obtained of the pelvis in various projections endovaginally. Transabdominal imaging was also performed. INDICATION: Secondary amenorrhea COMPARISON: None FINDINGS: The uterus is normal in size measuring 7.7 x 3.8 x 4.5 cm. No uterine masses are seen. The endometrium appears normal in thickness measuring 3 mm. The ovaries are not seen bilaterally. No free fluid is seen in the adnexa. There is bowel gas in the pelvis. IMPRESSION: 1. No uterine abnormality. 2. The ovaries are not seen bilaterally. Dictated by: Dictated on workstation # [id number]
== END ==
LOC: RAD 11:21
PROVIDERS: ATTEND Obstetrics & Gynecology
DX: N91.1 Secondary amenorrhea (principal)
CPT/HCPCS: 76830; 76856

== ENCOUNTER → 2021-10-28 | Outpatient (CLI) | payer SELFPAY | END | disposition home or self-care (01) | LOC: PREOP 05:30 | PROVIDERS: ATTEND Obstetrics & Gynecology | DX: Z01.818 Encounter for other preprocedural examination (principal) ==

== ENCOUNTER 2021-11-04 07:36 | Day surgery (SDC) | payer OTHER ==
[2021-11-04] VITALS (11 sets, daily range): BP systolic 108–145; BP diastolic 68–88
[~2021-11-04] VITALS: Ht 177.8 cm; Wt 104.3 kg
[~2021-11-04 07:36] MED LIST changes: +DEXT20TA8 PO; +HYDR10CA5 PO; +LOSA50TA63 PO
[2021-11-04] MEDS ORDERED: LACTATED RINGERS 1,000 ML IV PRN (07:45)
[2021-11-04] MEDS ORDERED: BUPIVACAINE 0.25% 30 ML (SENSORCAINE) VIAL ONE (07:50)
[2021-11-04 08:18] LABS: BASOPHILS % (AUTO) 0 % (0-10); EOSINOPHILS # (AUTO) 0.1 10^3/uL (0.0-0.3); EOSINOPHILS % (AUTO) 1 % (0-10); HEMATOCRIT 47 % (35-52); HEMOGLOBIN 16.1 g/dL (11.5-16.0); LYMPHOCYTES # (AUTO) 1.3 10^3/uL (1.0-4.0); LYMPHOCYTES % (AUTO) 22 % (12-44); MEAN CORPUSCULAR HEMOGLOBIN 30 pg (25-34); MEAN CORPUSCULAR HGB CONC 34 g/dL (32-36); MEAN CORPUSCULAR VOLUME 87 fL (80-99); MEAN PLATELET VOLUME 11.6 fL (9.0-12.2); MONOCYTES # (AUTO) 0.3 10^3/uL (0.0-1.0); MONOCYTES % (AUTO) 5 % (0-12); NEUTROPHILS % (AUTO) 71 % (42-75); PLATELET COUNT 143 10^3/uL (130-400); WHITE BLOOD COUNT 5.7 10^3/uL (4.3-11.0)
--- NOTE | 2021-11-04 09:02 | Progress Note-Pre Operative ---
Pre-Operative Progress Note Date of Available H&P: Nov 04, 2021 Date H&P Reviewed: Nov 04, 2021 Time H&P Reviewed: 08:30 History & Physical: No changes noted Pre-Operative Diagnosis: AUB, RAMON PEREZ DO Nov 04, 2021 09:02
--- NOTE | 2021-11-04 09:04 | Discharge Inst-Women's Service ---
Discharge Inst-Women's Serv Depart Medication/Instructions New, Converted or Re-Newed RX: Other (take Motrin/IBP OTC as needed. ) Problems Reviewed?: Yes Consults/Follow Up Additional Follow Up: Yes Orders/Referrals [address] De Paz Activity Activity: Activity as Tolerated Driving Instructions: No Driving for 1 Week NO SMOKING: NO SMOKING Nothing Inside Vagina: No Douching, No [place], No Tampons Diet Discharge Diet: No Restrictions Symptoms to Report to : Bleeding Excessive, Pain Increased, Fever Over 101 Degrees F, Vaginal Bleeding Increase, Questions/Concerns For Any Problems or Questions: Contact Your Physician RAMON DE APZ DO Nov 04, 2021 09:04
[2021-11-04] MEDS ORDERED: LIDOCAINE PF 1% 5 ML (XYLOCAINE) AMP ONE (09:06)
[2021-11-04] MEDS ORDERED: MIDAZOLAM 2 MG/2 ML (VERSED) VIAL ONE (09:06)
[2021-11-04] MEDS ORDERED: ONDANSETRON 4 MG/2 ML (SDV) Z0FRAN ONE (09:06)
[2021-11-04] MEDS ORDERED: fentaNYL INJ 100 MCG/2 ML AMP ONE (09:06)
[2021-11-04] MEDS ORDERED: proPOfol 200 MG/20 ML (DIPRIVAN) VIAL IV ONE (09:06)
[2021-11-04] MEDS ORDERED: SEVOFLURANE (ULTANE) 15 ML INHAL SOLN ONE (09:06)
[2021-11-04] MEDS ORDERED: ONDANSETRON 4 MG/2 ML (SDV) Z0FRAN IVP PRN ×2 (09:15→09:45)
[2021-11-04] MEDS ORDERED: D5 LR IV SOLUTION 1,000 ML IV SCH (09:15)
[2021-11-04] MEDS ORDERED: KETOROLAC 30 MG/ML VIAL IVP ONE (09:15)
--- NOTE | 2021-11-04 09:42 | Anesthesia-General Post-Op ---
General Patient Condition Mental Status/LOC: Same as Preop Cardiovascular: Satisfactory Nausea/Vomiting: Absent Respiratory: Satisfactory Pain: Controlled Complications: Absent Post Op Complications Complications None Follow Up Care/Instructions Patient Instructions None needed. Anesthesia/Patient Condition Patient Condition Patient is doing well, no complaints, stable vital signs, no apparent adverse anesthesia problems. No complications reported per nursing. SOWMYA LAST CRNA Nov 04, 2021 09:42
[2021-11-04] MEDS ORDERED: MEPERIDINE (DEMEROL) INJ 50 MG/ML IVP ONE (09:45)
[2021-11-04] MEDS ORDERED: morphine INJ 10 MG/ML 1ML (SYR OR VIAL) IVP ONE (09:45)
--- NOTE | 2021-11-04 11:54 | OPERATIVE REPORT ---
DATE OF SERVICE: PREOPERATIVE DIAGNOSES: 1. A 41-year-old female with low-grade squamous intraepithelial lesion on Pap smear. 2. Abnormal uterine bleeding. POSTOPERATIVE DIAGNOSES: 1. A 41-year-old female with low-grade squamous intraepithelial lesion on Pap smear. 2. Abnormal uterine bleeding. PROCEDURE PERFORMED: Colposcopy with Moises. SURGEON: Ramon De Paz DO ANESTHESIA: LMA general. ESTIMATED BLOOD LOSS: Minimal. URINE OUTPUT: 50 mL drained at start of procedure. FLUIDS: 800 mL lactated Ringer's solution. FINDINGS: A grossly normal appearing external female genitalia, some acetowhite changes 12 o'clock on the cervix, grossly normal-appearing uterus and ovaries on bimanual examination. SPECIMEN SENT: Cervical biopsy and endometrial curettings. INDICATIONS FOR PROCEDURE: This 41-year-old female is a patient who had sought care in my office. She desired hysterectomy. However, I discussed with the patient preoperative workup, ultrasound was ordered, which revealed a normal sized uterus and normal ovaries. She had a low-grade Pap smear and required colposcopy. I discussed with the patient proceeding with colposcopic evaluation as well as endometrial evaluation due to change in bleeding pattern. Risks of both these were discussed with the patient in detail. After all of her questions were answered, consent was obtained, the patient was taken to the operating room. OPERATIVE REPORT IN DETAIL: Once in the operating room, anesthesia was found to be adequate, placed in dorsal lithotomy position, prepped and draped in normal sterile fashion. Prepping of the vagina was held off until after colposcopy, I began the procedure by placing a weighted speculum into the patient's vagina, which allows me to visualize the cervix. I then stained the cervix with acetic acid %, which revealed some acetowhite changes at 12 o'clock, Kevorkian biopsy was taken of this area and send off as a cervical biopsy. Otherwise, the cervix appeared grossly normal. I then prepped the cervix using Betadine solution. I performed paracervical block at 12 and 9 o'clock positions on the cervix. Care was taken to aspirate for injecting 5 mL of 0.25% Marcaine injected into each site and the cervix was grasped at 12 o'clock position using a long Allis clamp. I then gently sound the uterine cavity, depth was found to be 8 cm. I then gently dilated cervix using Hanks dilators to maximum dilatation approximately 8 mm, at which point I performed a gentle curettage of the endometrium and sent this tissue as endometrial curettings, after which there was no active bleeding noted from any of my dissection planes. All the instruments were removed from the patient's vagina. The patient tolerated the procedure well and sent to recovery in stable condition. Lap and sponge counts were correct at the end of the procedure. Instrument counts correct as well. Job ID: [id number] DocumentID: [id number] Dictated Date: 11/04/2021 09:40:03 Craft Recruiter Date: 11/04/2021 11:53:49 Dictated By: RAMON DE PAZ DO MTDWhitney
== END 2021-11-04 11:29 | disposition home or self-care (01) ==
LOC: SDC 07:36
PROVIDERS: ATTEND Obstetrics & Gynecology
DX: N87.0 Mild cervical dysplasia (principal); E66.9 Obesity, unspecified; Z68.33 Body mass index [BMI] 33.0-33.9, adult; F17.210 Nicotine dependence, cigarettes, uncomplicated; N91.1 Secondary amenorrhea
CPT/HCPCS: 36415; 84702; 84703; 85025; 86850; 86900; 86901; 87081

== ENCOUNTER 2021-12-16 06:25 | Outpatient (CLI) | payer SELFPAY ==
[~2021-12-16] VITALS: Ht 177.8 cm; Wt 102.7 kg
[2021-12-16] MEDS ORDERED: MULT-974 PO (15:20)
[2021-12-16] MEDS ORDERED: HYDR-3584 PO (15:20)
== END 2021-12-17 14:48 | disposition home or self-care (01) ==
LOC: PREOP 06:25
PROVIDERS: ATTEND Obstetrics & Gynecology
DX: Z01.818 Encounter for other preprocedural examination (principal)

== ENCOUNTER 2021-12-23 07:23 | Day surgery (SDC) | payer MEDICAID, OTHER ==
[~2021-12-23] VITALS: Ht 177 cm; Wt 102.7 kg
[2021-12-23] VITALS (11 sets, daily range): BP systolic 119–190; BP diastolic 65–98
[~2021-12-23 07:23] MED LIST changes: +HYDR-3584 PO
[2021-12-23] MEDS ORDERED: MIDAZOLAM 2 MG/2 ML (VERSED) VIAL ONE (07:29)
[2021-12-23] MEDS ORDERED: LIDOCAINE PF 2% 5 ML (XYLOCAINE) VIAL ONE (07:29)
[2021-12-23] MEDS ORDERED: GLYCOPYRROLATE 0.2 MG/ML (ROBINUL) 2 ML VIAL ONE (07:29)
[2021-12-23] MEDS ORDERED: NEOSTIGMINE 3 MG/3 ML VIAL ONE (07:29)
[2021-12-23] MEDS ORDERED: ROCURONIUM 10 MG/ML 5 ML SYRINGE IV ONE (07:29)
[2021-12-23] MEDS ORDERED: ONDANSETRON 4 MG/2 ML (SDV) Z0FRAN ONE (07:29)
[2021-12-23] MEDS ORDERED: fentaNYL INJ 100 MCG/2 ML AMP ONE (07:29)
[2021-12-23] MEDS ORDERED: proPOfol 200 MG/20 ML (DIPRIVAN) VIAL IV ONE (07:29)
[2021-12-23] MEDS ORDERED: metroNIDAZOLE 500MG/100ML IVPB 100 ML IV ONE (07:30)
[2021-12-23] MEDS ORDERED: ceFAZolin INJECTION 2,000 MG in NS (IVPB) 50 ML IV ONE (07:30)
[2021-12-23] MEDS ORDERED: ONDANSETRON 4 MG/2 ML (SDV) Z0FRAN IVP PRN (07:45)
[2021-12-23] MEDS ORDERED: HYDROmorphone 2 MG/ML VIAL (DILAUDID) IV ONE (07:45)
[2021-12-23] MEDS ORDERED: morphine INJ 10 MG/ML 1ML (SYR OR VIAL) IVP ONE (07:45)
[2021-12-23] MEDS ORDERED: BUPIVACAINE 0.25% 30 ML (SENSORCAINE) VIAL ONE (07:53)
[2021-12-23 07:57] LABS: BASOPHILS % (AUTO) 1 % (0-10); EOSINOPHILS # (AUTO) 0.1 10^3/uL (0.0-0.3); EOSINOPHILS % (AUTO) 2 % (0-10); HEMATOCRIT 42 % (35-52); HEMOGLOBIN 13.8 g/dL (11.5-16.0); LYMPHOCYTES # (AUTO) 1.1 10^3/uL (1.0-4.0); LYMPHOCYTES % (AUTO) 22 % (12-44); MEAN CORPUSCULAR HEMOGLOBIN 30 pg (25-34); MEAN CORPUSCULAR HGB CONC 33 g/dL (32-36); MEAN CORPUSCULAR VOLUME 90 fL (80-99); MEAN PLATELET VOLUME 10.7 fL (9.0-12.2); MONOCYTES # (AUTO) 0.3 10^3/uL (0.0-1.0); MONOCYTES % (AUTO) 6 % (0-12); NEUTROPHILS # (AUTO) 3.6 10^3/uL (1.8-7.8); NEUTROPHILS % (AUTO) 70 % (42-75); PLATELET COUNT 169 10^3/uL (130-400); WHITE BLOOD COUNT 5.1 10^3/uL (4.3-11.0)
[2021-12-23] MEDS: LACTATED RINGERS 1,000 ML IV PRN ×2 (07:59→09:15)
[2021-12-23] MEDS ORDERED: MIDAZOLAM 2 MG/2 ML (VERSED) VIAL IV ONE (08:00)
--- NOTE | 2021-12-23 08:39 | History & Physical-Surgical ---
HPO-Surgical History of Present Illness Chief Complaint: AUB Diagnosis/Surgical Indication: RECURRENT CERVICAL DYSPLASIA, AUB Procedure: ROBOTIC ASSISTED TOTAL LAPAROSCOPIC HYSTERECTOMY WITH POSSIBLE BILATERAL SALPINGO OOPHORECTOMY Date of Surgery: Dec 23, 2021 Weight (Pounds): 230 Weight (Ounces): 0.0 Height (Feet): 5 Height (Inches): 10.00 Allergies and Home Medications Allergies Coded Allergies: No Known Drug Allergies (Unverified , 12/17/21) Patient Home Medication List Home Medication List Reviewed: Yes Dextroamphetamine/Amphetamine (Amphetamine Salts 20 mg Tablet) 20 Mg Tablet, 20 MG PO DAILY, (Reported) Entered as Reported by: CK LOPEZ on 10/31/21 1000 Last Action: Last Taken Edited Hydroxyzine HCl (Hydroxyzine HCl) 10 Mg Tablet, 10 MG PO DAILY, (Reported) Entered as Reported by: VENECIA BRYANT on 12/16/21 1520 Last Action: Last Taken Edited Losartan Potassium (Losartan Potassium) 50 Mg Tablet, 50 MG PO DAILY, (Reported) Entered as Reported by: CK LOPEZ on 10/31/21 1000 Last Action: Last Taken Edited Multivitamin (Multi-Vitamin Daily) 1 Each Tablet, 1 EACH PO DAILY, (Reported) Entered as Reported by: VENECIA BRYANT on 12/16/21 152 Last Action: Last Taken Edited Discontinued Medications HYDROcodone bitartrate (Hydrocodone Bitartrate ER) 10 Mg Cap.er.12h, 10 MG PO PRN, (Reported) Discontinued Reason: No Longer Taking Entered as Reported by: CK LOPEZ on 10/31/21 1000 Past Avcvdxe-Hxigqc-Ciybxf Hx Patient Social History Smoking Status: Current Everyday Smoker 2nd Hand Smoke Exposure: Yes Recent Hopitalizations: No Seasonal Allergies Seasonal Allergies: No Surgeries No (bilat knee scopes, r elbow, r rotator cuff, bilat carpal tunnel) Orthopedic, Tonsillectomy, Tubal Ligation Respiratory No Cardiovascular Yes Hypertension Neurological Yes (RIGHT THUMB HAS NO FEELING) Reproductive System Hx Reproductive Disorders: No 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 Genitourinary No Gastrointestinal No Musculoskeletal Yes (MULTIPLE ORTHO SURGERIES) Endocrine History of Endocrine Disorders: Yes (IN 30'S DIAGNOSED FOOD ALLERGY) HEENT History of HEENT Disorders: No Cancer No Psychosocial History of Psychiatric Problem: Yes (OCD) Behavioral Health Disorders: Anxiety, PTSD Integumentary History of Skin or Integumenta: No Blood Transfusions History of Blood Disorders: No Adverse Reaction to a Blood Tr: No Family Medical History Significant Family History: No Pertinent Family Hx Exam Vital Signs Vital Signs 12/23/21 07:45 Temp 36.4 Pulse 55 Resp 18 B/P (MAP) 123/82 (96) Pulse Ox 99 O2 Delivery Room Air Capillary Refill : Labs Laboratory Tests Test 12/23/21 07:53 Range/Units White Blood Count 5.1 4.3-11.0 10^3/uL Red Blood Count 4.65 3.80-5.11 10^6/uL Hemoglobin 13.8 11.5-16.0 g/dL Hematocrit 42 35-52 % Mean Corpuscular Volume 90 80-99 fL Mean Corpuscular Hemoglobin 30 25-34 pg Mean Corpuscular Hemoglobin Concent 33 32-36 g/dL Red Cell Distribution Width 13.3 10.0-14.5 % Platelet Count 169 130-400 10^3/uL Mean Platelet Volume 10.7 9.0-12.2 fL Immature Granulocyte % (Auto) 0 % Neutrophils (%) (Auto) 70 42-75 % Lymphocytes (%) (Auto) 22 12-44 % Monocytes (%) (Auto) 6 0-12 % Eosinophils (%) (Auto) 2 0-10 % Basophils (%) (Auto) 1 0-10 % Neutrophils # (Auto) 3.6 1.8-7.8 10^3/uL Lymphocytes # (Auto) 1.1 1.0-4.0 10^3/uL Monocytes # (Auto) 0.3 0.0-1.0 10^3/uL Eosinophils # (Auto) 0.1 0.0-0.3 10^3/uL Basophils # (Auto) 0.0 0.0-0.1 10^3/uL Immature Granulocyte # (Auto) 0.0 0.0-0.1 10^3/uL General Appearance: Alert, Oriented X3 HEENT: Atraumatic Respiratory: Clear to Auscultation Cardiovascular: Regular Rate Abdominal: Normal Bowel Sounds Extremities: No Clubbing Skin: No Rashes Neuro: Normal Gait Psych/Mental Status: Mental Status NL Assessment/Plan Assessment and Plan Recurrent cervical dysplasia Admission Diagnosis Recurrent cervical dysplasia Admission Status: Observation RAMON DE PAZ DO Dec 23, 2021 08:39
--- NOTE | 2021-12-23 08:42 | Discharge Inst-Women's Service ---
Discharge Inst-Women's Serv Depart Medication/Instructions New, Converted or Re-Newed RX: Transmitted to Pharmacy Problems Reviewed?: Yes Consults/Follow Up Additional Follow Up: Yes Orders/Referrals Dr. Granados in 7-10 days and in 8 weeks Activity Activity: Activity as Tolerated Driving Instructions: No Driving for 1 Week NO SMOKING: NO SMOKING Nothing Inside Vagina: No Douching, No [place], No Tampons Diet Discharge Diet: No Restrictions Symptoms to Report to : Bleeding Excessive, Pain Increased, Fever Over 101 Degrees F, Vaginal Bleeding Increase, Questions/Concerns For Any Problems or Questions: Contact Your Physician Skin/Wound Care Infection Signs and Symptoms: Increased Redness, Foul Odor of Wound, Increased Drainage, Skin Itchy or Has a Rash, Increased Swelling, Temperature Above 101 F Operative Area Clean and Dry: Keep Incision Clean/Dry Stitches/Jonas/Dermabond: Dermabond, Care of Stitches Bathing Instructions: RAMON Nguyen DO Dec 23, 2021 08:42
[2021-12-23] MEDS ORDERED: DOCU100C37 PO (08:44)
[2021-12-23] MEDS ORDERED: HYDR-34 PO (08:44)
[2021-12-23] MEDS ORDERED: IBUP-844 PO (08:44)
[2021-12-23] MEDS ORDERED: SIME80TA16 PO (08:44)
[2021-12-23] MEDS ORDERED: ANTACID SUSP 30 ML UDC (MYLANTA) PO PRN (08:45)
[2021-12-23] MEDS ORDERED: HYDROcodone/APAP 7.5 MG/325 MG (LORTAB, LORCET PLUS) TABLET PO PRN (08:45)
[2021-12-23] MEDS ORDERED: SIMETHICONE 80 MG (MYLICON) CHEW PO PRN (08:45)
[2021-12-23] MEDS ORDERED: LACTATED RINGERS 1,000 ML IV SCH (08:45)
[2021-12-23] MEDS ORDERED: DOCUSATE SODIUM 100 MG (COLACE) CAP PO PRN (08:45)
[2021-12-23] MEDS ORDERED: KETOROLAC 30 MG/ML VIAL IVP PRN (08:45)
[2021-12-23] MEDS ORDERED: CEPACOL SORE THROAT-COUGH LOZENGE MM PRN (08:45)
[2021-12-23] MEDS ORDERED: ZOLPIDEM 5 MG (AMBIEN) TAB PO PRN (08:45)
[2021-12-23] MEDS ORDERED: ONDANSETRON 4 MG/2 ML (SDV) Z0FRAN IV PRN (08:45)
[2021-12-23] MEDS ORDERED: BUPIVACAINE 0.25% 30 ML (SENSORCAINE) VIAL INJ ONE (09:22)
[2021-12-23] MEDS ORDERED: HYDROmorphone 2 MG/ML VIAL (DILAUDID) ONE (09:52)
[2021-12-23] MEDS ORDERED: KETOROLAC 30 MG/ML VIAL ONE (09:56)
[2021-12-23] MEDS ORDERED: morphine INJ 10 MG/ML 1ML (SYR OR VIAL) ONE (09:56)
[2021-12-23] MEDS ORDERED: SEVOFLURANE (ULTANE) 15 ML INHAL SOLN ONE (09:57)
[2021-12-23] MEDS ORDERED: PROMETHAZINE INJ 25 MG/ML (PHENERGAN) AMP ONE (10:17)
[2021-12-23] MEDS ORDERED: PROMETHAZINE INJ 25 MG/ML (PHENERGAN) AMP IVP ONE (10:30)
--- NOTE | 2021-12-23 13:36 | Anesthesia-General Post-Op ---
General Patient Condition Mental Status/LOC: Same as Preop Cardiovascular: Satisfactory Nausea/Vomiting: Absent Respiratory: Satisfactory Pain: Controlled Complications: Absent Post Op Complications Complications None Follow Up Care/Instructions Patient Instructions None needed. Anesthesia/Patient Condition Patient Condition Patient is doing well. She initially had complaints of nausea in PACU but that improved and she had stable vital signs, no apparent adverse anesthesia problems. No complications reported per nursing. CJ DODGE DO Dec 23, 2021 13:36
--- NOTE | 2021-12-23 17:58 | OPERATIVE REPORT ---
DATE OF SERVICE: PREOPERATIVE DIAGNOSES: 1. A 41-year-old female with recurrent cervical dysplasia. 2. Abnormal uterine bleeding. POSTOPERATIVE DIAGNOSES: 1. A 41-year-old female with recurrent cervical dysplasia. 2. Abnormal uterine bleeding. PROCEDURES PERFORMED: Robotic-assisted total laparoscopic hysterectomy with bilateral oophorectomy. SURGEON: Wicoh De Paz DO. CONVERTER SUPERVISOR: Aurora Eng DNP, was necessary for manipulation and retraction throughout the procedure. ANESTHESIA: General endotracheal. ESTIMATED BLOOD LOSS: Minimal. URINE OUTPUT: 150 mL clear at the end of the procedure. FLUIDS: 800 mL lactated Ringer's solution. FINDINGS: A grossly normal appearing external female genitalia, grossly normal-appearing uterus, absence of fallopian tubes, and grossly normal appearing bilateral ovaries. SPECIMEN SENT: Uterus and bilateral ovaries. INDICATIONS FOR PROCEDURE: This 41-year-old female is a patient, who had sought care in my office initially for cervical dysplasia on Pap smear with a followup colposcopy, which revealed a low-grade dysplasia; however, this was then recurrent and she has been going through colposcopies and abnormal Pap smears for the past 10 years. She has more concerns due to a strong family history of cancer in general. She did describe some uterine cancer in the family and ovarian cancer in the family and wishes to have all of this removed as a precaution due to those ongoing underlying concerns. Risk of removal of the ovary in a 41 years old was discussed with the patient in detail and possible need for hormone replacement therapy was discussed; however, the patient is currently a smoker and we discussed that this was contraindicated. She would have to stop smoking and we would discuss the risk of ongoing hormone replacement therapy and the risk of breast cancer associated with that moving forward. Despite all of these risks, the patient was still wishing to proceed with oophorectomy. Risks of the procedure in general was discussed with the patient in detail including risk of bleeding, infection, damaging to the surrounding structures including, but not limited to bowel, bladder, ureter, kidneys, possible need for reoperation, postoperative complications that may occur, recovery timeframe, risk from anesthesia, and even . We also discussed the expectations on followup, pain control and medications at discharge with her and her daughter present. All questions were answered, consent was obtained in the preoperative area, the patient was taken to the operating room. OPERATIVE REPORT IN DETAIL: Once in the operating room, general anesthesia was found to be adequate, she was placed in a dorsal lithotomy position, and prepped and draped in a normal sterile fashion. A timeout was performed. A Fink catheter was placed using sterile technique. A weighted speculum was inserted to the patient's vagina. Right angle retractor was used to visualize the cervix and 0 Vicryl suture was then placed at the anterior lip of the cervix and the Vicryl suture using my retraction point on the cervix. I then gently sound the uterine cavity, was found to be 8 cm. I selected an 8 cm Viola uterine manipulator tip and a 3.5 cm colpotomy ring. The manipulator tip was advanced into the uterus where the balloon was deployed. The Viola colpotomy ring is advanced around the vaginal fornix after which an excellent manipulation is noted on bimanual. I then removed all the other instruments from the patient's vagina, performed change of gloves, turned my attention to the abdomen, where subcostally at the midclavicular line, I introduced the Veress needle through the skin until intraperitoneal placement was confirmed using a saline drop test, and an opening pressure of 4 mmHg as noted, I proceeded with CO2 insufflation to maximum pressure of 15 mmHg, at which point I infiltrated the infraumbilical area using 0.25% Marcaine to make an 8 mm incision with a knife and directed a blunt 8 mm da Av laparoscopic trocar through the incision until intraperitoneal placement was confirmed using the da Av laparoscope. There was no evidence of damage from entry site. Brief scan of the upper abdominal anatomy appears to be grossly normal and the Veress was removed without any evidence of damage in that site as well. I then had the patient placed in a steep Trendelenburg, where I was able to visualize all the pelvic anatomy defined in my findings above. I placed two lateral trocars approximately 10 cm lateral to my infraumbilical trocar. Both of these incisions were 8 mm and the trocars were placed under direct visualization of the laparoscope. Once these trocars were in place, I bring in the da Av robot and docked in appropriate fashion placing the single device in left hand and monopolar donan in the right hand performed the following dissection bilaterally starting at the IP ligament, I sealed and transected this using the SynchroSeal device. I took this down to the broad ligament, where I encountered the round ligament, which I sealed and transected using the SynchroSeal device. I proceeded with dissection down the broad ligament until I reached the lower uterine segment, at which point I the anterior and posterior leaves of the broad ligament. Anterior leaflet was taken around the anterior vaginal fornix and posterior leaflet was taken around the posterior vaginal fornix. This allowed me to skeletonize the uterine vessels laterally and seal and transect the uterine arteries using the SynchroSeal device. Care was taken to stay clear of the lateral pelvic wall and the ureters, which were identified during my dissection process. I then created a colpotomy at 12 o'clock position using monopolar donna and took this circumferentially around the vaginal fornix amputating the cervix away from the vagina. The entire specimen was then removed through the vagina. There was no active bleeding noted from any of my vaginal cuff. Therefore, I proceeded with closing the vaginal cuff using 2-0 V-Loc in a running fashion, after which, again, there was no active bleeding noted. I then removed all instruments from the patient's abdomen and undocked the da Av robot. I proceeded with remainder of the case laparoscopically. I then copiously irrigated the pelvis using normal saline. Once again, there was no active bleeding noted from any of my dissection planes. I placed Surgiflo hemostatic agent over all my planes of dissection. I had the patient taken out of steep Trendelenburg, where I removed the lateral trocars under direct visualization of the laparoscope. The infraumbilical trocar was left in place to release insufflation and introduced 10 mL of 0.25% Marcaine into peritoneal cavity for postoperative pain management. I then removed this trocar as well. The skin of all three incisions was reapproximated using 4-0 Monocryl in interrupted subcuticular stitches. Dermabond was applied to incision and Band-Aids were placed over the incisions as well including the puncture wound from the Veress. A Fink catheter was left in place. The patient tolerated the procedure well and sent to recovery area in stable condition. Lap and sponge counts were correct at the end of the procedure. Instrument counts correct as well. Two grams of Ancef and 500 mg of Flagyl were given preoperatively for infection prophylaxis. Job ID: [id number] DocumentID: [id number] Dictated Date: 12/23/2021 11:48:35 Data Governance Consultant Date: 12/23/2021 17:58:26 Dictated By: WICHO DE PAZ DO
[2021-12-28] MEDS ORDERED: IBUPROFEN 600 MG (MOTRIN) TAB PO SCH (06:00)
== END 2021-12-23 15:25 | disposition home or self-care (01) ==
LOC: SDC 07:23 → WS 11:10 → SDC 15:25
PROVIDERS: ATTEND Obstetrics & Gynecology
DX: N87.0 Mild cervical dysplasia (principal); N80.03 Adenomyosis of the uterus; N83.11 Corpus luteum cyst of right ovary; E66.9 Obesity, unspecified; Z68.32 Body mass index [BMI] 32.0-32.9, adult; F17.210 Nicotine dependence, cigarettes, uncomplicated
CPT/HCPCS: 36415; 84703; 85025; 86850; 86900; 86901; 87081

== ENCOUNTER 2022-07-30 20:43 | Emergency (ER) | payer MEDICAID, OTHER ==
[~2022-07-30] VITALS: Ht 177 cm; Wt 108.8 kg
[~2022-07-30 20:43] MED LIST changes: +DOCU100C37 PO; +HYDR-34 PO; +IBUP-844 PO; +SIME80TA16 PO
[2022-07-30 20:46] VITALS: BP 165/85
--- NOTE | 2022-07-30 20:57 | ED EENT ---
History of Present Illness General Chief Complaint: Dental Problems/Pain Stated Complaint: TOOTH PAIN History of Present Illness Date Seen by Provider: July 30, 2022 Time Seen by Provider: 20:55 Initial Comments 42-year-old female is here with complaints of left upper tooth pain which was sudden onset after she was eating chips and fractured her tooth lengthwise. Fr david is unable to be seen but patient states that she can feel the tooth splitting with her tongue. Allergies and Home Medications Allergies Coded Allergies: No Known Drug Allergies (Unverified , 12/17/21) Patient Home Medication List Home Medication List Reviewed: Yes Dextroamphetamine/Amphetamine (Amphetamine Salts 20 mg Tablet) 20 Mg Tablet, 20 MG PO DAILY, (Reported) Entered as Reported by: CK LOPEZ on 10/31/21 1000 Docusate Sodium (Docusate Sodium) 100 Mg Capsule, 100 MG PO BID PRN for CONSTIPATION-1ST LINE Prescribed by: RAMON DE PAZ on 12/23/21 0844 Hydrocodone Bit/Acetaminophen (HYDROcodone/APAP 7.5/325 TAB) 1 Ea Tablet, 1-2 EA PO Q6HR PRN for PAIN-MODERATE (5-7) Prescribed by: RAMON DE PAZ on 12/23/21 0845 Hydroxyzine HCl (Hydroxyzine HCl) 10 Mg Tablet, 10 MG PO DAILY, (Reported) Entered as Reported by: VENECIA BRYANT on 12/16/21 1520 Ibuprofen (Ibu) 600 Mg Tablet, 600 MG PO Q6HR Prescribed by: RAMON DE PAZ on 12/23/21 0844 Losartan Potassium (Losartan Potassium) 50 Mg Tablet, 50 MG PO DAILY, (Reported) Entered as Reported by: CK LOPEZ on 10/31/21 1000 Multivitamin (Multi-Vitamin Daily) 1 Each Tablet, 1 EACH PO DAILY, (Reported) Entered as Reported by: VENECIA BRYANT on 12/16/21 1520 Simethicone (Simethicone) 80 Mg Tab.chew, 40 MG PO TID PRN for INDIGESTION 2ND LINE Prescribed by: RAMON DE PAZ on 12/23/21 0844 Review of Systems Review of Systems Constitutional: no symptoms reported Eyes: No Symptoms Reported Ears: No Symptoms Reported Nose: no symptoms reported Mouth: see HPI, other (Dental pain) Throat: no symptoms reported Respiratory: no symptoms reported Cardiovascular: no symptoms reported Gastrointestinal: no symptoms reported Musculoskeletal: no symptoms reported Skin: no symptoms reported Neurological: No Symptoms Reported Hematologic/Lymphatic: No Symptoms Reported Immunological/Allergic: no symptoms reported Past Lwqphjq-Etoern-Yjzcbn Hx Immunizations Up To Date First/Initial COVID19 Vaccinat: NO Second COVID19 Vaccination Td: NO Third COVID19 Vaccination Date: NO Seasonal Allergies Seasonal Allergies: No Past Medical History Surgeries: No (bilat knee scopes, r elbow, r rotator cuff, bilat carpal tunnel) Orthopedic, Tonsillectomy, Tubal Ligation Respiratory: No Currently Using CPAP: No Currently Using BIPAP: No Cardiac: Yes Hypertension Neurological: Yes (RIGHT THUMB HAS NO FEELING) Reproductive Disorders: 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 0.0oz. [id number]; 32.78 BMI Method:Stated General Appearance: WD/WN, moderate distress Nose: normal inspection Mouth/Throat: dental tenderness (First molar on upper left side of mouth has a crack posteriorly. Otherwise tooth is intact without any chips. Patient has multiple teeth missing in her mouth. Poor dental hygiene.) Neck: non-tender, full range of motion Neurologic/Psychiatric: alert, oriented x 3 Skin: normal color Progress/Results/Core Measures Results/Orders My Orders Orders - CEDRICK MCGREGOR MD Ketorolac Injection (Toradol Injection) (07/30/22 21:15) Amoxicillin/Clavulanate Tablet (Augmenti (07/30/22 21:07) Vital Signs/I&O 07/30/22 20:46 Temp 36.6 Pulse 65 Resp 18 B/P (MAP) 165/85 (111) Pulse Ox 100 O2 Delivery Room Air Progress Progress Note : Progress Note 1. DENTAL PAIN: TOOTH FRACTURE: - Toradol im STAT - Augmentin 875 bid for 7 days with first tab given in ER - Follow-up with dentist SHANIQUA Departure Impression Primary Impression: Pain, dental Additional Impression: Tooth fracture Qualified Codes: S02.5XXA - Fracture of tooth (traumatic), initial encounter for closed fracture Disposition: HOME, SELF-CARE Condition: Stable Departure-Patient Inst. Referrals: LUCIEN MILLAN MD (PCP) Primary Care Physician BEN GABRIEL (Family) Primary Care Physician Patient Instructions: Dental Pain, Fractured Tooth (DC) Add. Discharge Instructions: - Augmentin 875 bid for 7 days with first tab given in ER - Follow-up with dentist SHANIQUA All discharge instructions reviewed with patient and/or family. Voiced understanding. CEDRICK MCGREGOR MD July 30, 2022 20:57
[2022-07-30] MEDS ORDERED: AUGMENTIN 875 MG TAB (AMOXICILLIN/CLAVULANATE) PO STA (21:07)
[2022-07-30] MEDS ORDERED: KETOROLAC 30 MG/ML VIAL IM ONE (21:15)
[2022-07-30] MEDS ORDERED: AMOX875T2 PO (21:15)
== END 2022-07-30 21:51 | disposition home or self-care (01) ==
LOC: EDUNIT# 20:43 → ER FS 20:44
DX: K03.81 Cracked tooth (principal); Z28.310 Unvaccinated for COVID-19
CPT/HCPCS: 99282

== ENCOUNTER 2022-08-27 21:36 | Emergency (ER) | payer MEDICAID ==
[~2022-08-27] VITALS: Ht 177.8 cm; Wt 114.0 kg
[~2022-08-27 21:36] MED LIST changes: +AMOX875T2 PO
--- NOTE | 2022-08-27 21:59 | ED Abdominal Pain ---
General Chief Complaint: Abdominal/GI Problems Stated Complaint: ABDOMINAL PAIN Nursing Triage Note: TO ED VIA POV AND AMBULATORY TO ROOM 5 STATING, "I THINK MY GALLBLADDER IS ABOUT TO BURST". PT STATES SHE HAS HAD MID ABD PAIN SINCE THURSDAY MORNING. LAST FOOD WAS NASCIMENTO BURRITO 1H STAPLE LASTER. RATES PAIN "SOLID 12" ON 0-10 SCALE. Source of Information: Patient Exam Limitations: No Limitations History of Present Illness Date Seen by Provider: Aug 27, 2022 Time Seen by Provider: 21:50 Initial Comments Patient is a 42-year-old female who presents to the emergency room with a chief complaint of epigastric and right upper quadrant abdominal pain onset 2 days ago. Patient states she had [employer] for dinner on Thursday night had a little abdominal discomfort at that time. States the pain intensified dramatically on Thursday. She has been taking intermittent ibuprofen without much relief of symptoms. She started dry heaving today. She thinks she has a bad gallbladder. Denies fevers or chills. She has chronic diarrhea, nonblack nonbloody. No urinary complaints. She has never had gallbladder imaging. Rates her pain a "12". Status post hysterectomy. Timing/Duration: 2-3 Days Severity/Quality: Severe, Aching, Sharp Location: RUQ, Epigastric Radiation: Back, Shoulder Activities at Onset: None Modifying Factors: Worsens With Breathing; Improves With Eating Associated Symptoms: Back Pain, Nausea/Vomiting, Other ("bloated") Allergies and Home Medications Allergies Coded Allergies: No Known Drug Allergies (Unverified , 12/17/21) Patient Home Medication List Home Medication List Reviewed: Yes Amoxicillin (Amoxicillin) 875 Mg Tablet, 875 MG PO BID Prescribed by: CEDRICK MCGREGOR MD on 07/30/222114 Dextroamphetamine/Amphetamine (Amphetamine Salts 20 mg Tablet) 20 Mg Tablet, 20 MG PO DAILY, (Reported) Entered as Reported by: CK LOPEZ on 10/31/21 1000 Docusate Sodium (Docusate Sodium) 100 Mg Capsule, 100 MG PO BID PRN for CONSTIPATION-1ST LINE Prescribed by: RAMON DE PAZ on 12/23/21 0844 Hydrocodone Bit/Acetaminophen (HYDROcodone/APAP 7.5/325 TAB) 1 Ea Tablet, 1-2 EA PO Q6HR PRN for PAIN-MODERATE (5-7) Prescribed by: RAMON DE PAZ on 12/23/21 0845 Hydroxyzine HCl (Hydroxyzine HCl) 10 Mg Tablet, 10 MG PO DAILY, (Reported) Entered as Reported by: VENECIA BRYANT on 12/16/21 1520 Ibuprofen (Ibu) 600 Mg Tablet, 600 MG PO Q6HR Prescribed by: RAMON DE PAZ on 12/23/21 0844 Losartan Potassium (Losartan Potassium) 50 Mg Tablet, 50 MG PO DAILY, (Reported) Entered as Reported by: CK LOPEZ on 10/31/21 1000 Multivitamin (Multi-Vitamin Daily) 1 Each Tablet, 1 EACH PO DAILY, (Reported) Entered as Reported by: VENECIA BRYANT on 12/16/21 1520 Simethicone (Simethicone) 80 Mg Tab.chew, 40 MG PO TID PRN for INDIGESTION 2ND LINE Prescribed by: RAMON DE PAZ on 12/23/21 0844 Review of Systems Review of Systems Constitutional: see HPI EENTM: No Symptoms Reported Respiratory: Shortness of Air ("hurts to take a deep breath") Gastrointestinal: Abdominal Pain, Nausea, Other ("dry heaves") Genitourinary: No Symptoms Reported Musculoskeletal: no symptoms reported Skin: no symptoms reported All Other Systems Reviewed Negative Unless Noted: Yes Past Rvwzcwo-Qvabsc-Pkvvmd Hx Patient Social History Tobacco Use?: Yes Tobacco type used: Cigarettes Smoking Status: Current Everyday Smoker Substance use?: Yes Substance type: Marijuana Immunizations Up To Date First/Initial COVID19 Vaccinat: NO Second COVID19 Vaccination Td: NO Third COVID19 Vaccination Date: NO Seasonal Allergies Seasonal Allergies: No Past Medical History Surgeries: No (bilat knee scopes, r elbow, r rotator cuff, bilat carpal tunnel) Orthopedic, Tonsillectomy, Tubal Ligation Respiratory: No Currently Using CPAP: No Currently Using BIPAP: No Cardiac: Yes Hypertension Neurological: Yes (RIGHT THUMB HAS NO FEELING) 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 0.0oz. 104.290847hh; 36.00 BMI Method:Stated General Appearance: WD/WN, mild distress HEENT: PERRL/EOMI Respiratory: lungs clear, normal breath sounds, no respiratory distress, no accessory muscle use Cardiovascular: regular rate, rhythm Gastrointestinal: abnormal bowel sounds, tenderness (significant RUQ and epigastric tenderness; hypoactive BS) Extremities: normal range of motion, pedal edema Neurologic/Psychiatric: alert, normal mood/affect, oriented x 3 Skin: normal color, warm/dry Progress/Results/Core Measures Results/Orders Lab Results Laboratory Tests Test 08/27/22 22:08 Range/Units White Blood Count 6.7 4.3-11.0 10^3/uL Red Blood Count 4.69 3.80-5.11 10^6/uL Hemoglobin 14.2 11.5-16.0 g/dL Hematocrit 43 35-52 % Mean Corpuscular Volume 91 80-99 fL Mean Corpuscular Hemoglobin 30 25-34 pg Mean Corpuscular Hemoglobin Concent 33 32-36 g/dL Red Cell Distribution Width 13.3 10.0-14.5 % Platelet Count 190 130-400 10^3/uL Mean Platelet Volume 10.8 9.0-12.2 fL Immature Granulocyte % (Auto) 0 % Neutrophils (%) (Auto) 62 42-75 % Lymphocytes (%) (Auto) 29 12-44 % Monocytes (%) (Auto) 6 0-12 % Eosinophils (%) (Auto) 2 0-10 % Basophils (%) (Auto) 1 0-10 % Neutrophils # (Auto) 4.1 1.8-7.8 10^3/uL Lymphocytes # (Auto) 1.9 1.0-4.0 10^3/uL Monocytes # (Auto) 0.4 0.0-1.0 10^3/uL Eosinophils # (Auto) 0.1 0.0-0.3 10^3/uL Basophils # (Auto) 0.1 0.0-0.1 10^3/uL Immature Granulocyte # (Auto) 0.0 0.0-0.1 10^3/uL Sodium Level 139 135-145 MMOL/L Potassium Level 3.5 L 3.6-5.0 MMOL/L Chloride Level 103 98-107 MMOL/L Carbon Dioxide Level 28 21-32 MMOL/L Anion Gap 8 5-14 MMOL/L Blood Urea Nitrogen 9 7-18 MG/DL Creatinine 0.86 0.60-1.30 MG/DL Estimat Glomerular Filtration Rate 86 BUN/Creatinine Ratio 10 Glucose Level 104 70-105 MG/DL Calcium Level 9.4 8.5-10.1 MG/DL Corrected Calcium 9.3 8.5-10.1 MG/DL Total Bilirubin 0.5 0.1-1.0 MG/DL Aspartate Amino Transf (AST/SGOT) 21 5-34 U/L Alanine Aminotransferase (ALT/SGPT) 33 0-55 U/L Alkaline Phosphatase 96 40-136 U/L Total Protein 6.9 6.4-8.2 GM/DL Albumin 4.1 3.2-4.5 GM/DL Lipase 55 8-78 U/L My Orders Orders - CHAVEZ SANDHU MD Ed Iv/Invasive Line Start (08/27/22 21:59) Cbc With Automated Diff (08/27/22 21:59) Comprehensive Metabolic Panel (08/27/22 21:59) Lipase (08/27/22 21:59) Lactated Ringers (Lr 1000 Ml Iv Solution (08/27/22 22:00) Fentanyl Inj (Sublimaze Injection) (08/27/22 22:00) Ondansetron Injection (Zofran Injectio (08/27/22 22:00) Dicyclomine Capsule (Bentyl Capsule) (08/27/22 22:34) Morphine Injection (Morphine Injection (08/27/22 23:14) Medications Given in ED Current Medications Medications Dose Ordered Sig/Leonard Route Start Time Stop Time Status Last Admin Dose Admin Fentanyl Citrate 50 mcg ONCE ONCE IVP 08/27/22 22:00 08/27/22 22:01 DC 08/27/22 22:15 50 MCG Ondansetron HCl 4 mg ONCE ONCE IVP 08/27/22 22:00 08/27/22 22:01 DC 08/27/22 22:14 4 MG Vital Signs/I&O 6/21/23 21:43 Temp 36.8 Pulse 71 Resp 18 B/P (MAP) 166/105 (125) Pulse Ox 100 O2 Delivery Room Air Blood Pressure Mean: 125 Progress Progress Note : Time: 23:07 Progress Note Patient seen and evaluated by me. Evaluation today includes physical exam, CBC, comprehensive metabolic panel with lipase. Pertinent physical exam findings well-developed well-nourished moderately obese female in moderate distress. Hypoactive bowel sounds, very tender to palpation in the right upper quadrant and epigastrium. Patient will not tolerate deep enough palpation for Cross's. She has 1-2+ edema in her bilateral lower extremities. Heart is regular. Blood pressure is good. She is not hypoxic, room air sats are 100% on room air. Differential diagnosis based on history and physical exam, acute cholecystitis, cholelithiasis, acute gastritis. Labs independently reviewed and interpreted by me. Her CBC is completely normal, her chemistry is completely normal, lipase is within normal range. Patient is treated with IV fentanyl and Zofran. She is also given dicyclomine p .o. She has improvement in her symptoms. She does not have any objective findings of acute cholecystitis. She is not febrile, has no white count has no alteration in her liver functions. We will give her some pain medications for home tonight and set her up for a gallbladder ultrasound at 7:30 in the morning. Patient is given return precautions and both verbal and written format. She verbalized understanding and agreement with the plan of care all questions were sought and answered. Departure Impression Primary Impression: Abdominal pain Qualified Codes: R10.11 - Right upper quadrant pain Disposition: 01 HOME, SELF-CARE Condition: Stable Departure-Patient Inst. Decision time for Depature: 23:17 Referrals: LUCIEN MILLAN MD (PCP/Family) Primary Care Physician Patient Instructions: Abdominal Pain, Adult ED Add. Discharge Instructions: You can have a sip or 2 of water in the morning when you get up, but nothing to eat. Please check in at 0715 for your Gallbladder ultrasound at 0730. Hydrocodone 5mg tablets, 1 every 6 hours as needed for pain. You can take 1 extra strength tylenol with a hydrocodone. If you have any worsening during the night, fever, persistent vomiting - please return to the Emergency Department for re-evaluation. Copy Copies To 1: LUCIEN MILLAN MD, KATHRYN M MD Aug 27, 2022 21:59
[2022-08-27] MEDS ORDERED: LACTATED RINGERS 1,000 ML IV SCH (22:00)
[2022-08-27] MEDS ORDERED: fentaNYL INJ 100 MCG/2 ML AMP IVP ONE (22:00)
[2022-08-27] MEDS ORDERED: ONDANSETRON 4 MG/2 ML (SDV) Z0FRAN IVP ONE (22:00)
[2022-08-27 22:14] LABS: BASOPHILS # (AUTO) 0.1 10^3/uL (0.0-0.1); BASOPHILS % (AUTO) 1 % (0-10); EOSINOPHILS # (AUTO) 0.1 10^3/uL (0.0-0.3); EOSINOPHILS % (AUTO) 2 % (0-10); HEMATOCRIT 43 % (35-52); HEMOGLOBIN 14.2 g/dL (11.5-16.0); LYMPHOCYTES # (AUTO) 1.9 10^3/uL (1.0-4.0); LYMPHOCYTES % (AUTO) 29 % (12-44); MEAN CORPUSCULAR HEMOGLOBIN 30 pg (25-34); MEAN CORPUSCULAR HGB CONC 33 g/dL (32-36); MEAN CORPUSCULAR VOLUME 91 fL (80-99); MEAN PLATELET VOLUME 10.8 fL (9.0-12.2); MONOCYTES # (AUTO) 0.4 10^3/uL (0.0-1.0); MONOCYTES % (AUTO) 6 % (0-12); NEUTROPHILS # (AUTO) 4.1 10^3/uL (1.8-7.8); NEUTROPHILS % (AUTO) 62 % (42-75); PLATELET COUNT 190 10^3/uL (130-400); WHITE BLOOD COUNT 6.7 10^3/uL (4.3-11.0)
[2022-08-27 22:22] LABS: ALBUMIN 4.1 GM/DL (3.2-4.5)
[2022-08-27 22:23] LABS: POTASSIUM 3.5 MMOL/L (3.6-5.0)
[2022-08-27 22:24] LABS: CALCIUM 9.4 MG/DL (8.5-10.1)
[2022-08-27 22:25] LABS: TOTAL PROTEIN 6.9 GM/DL (6.4-8.2)
[2022-08-27 22:27] LABS: BILIRUBIN,TOTAL 0.5 MG/DL (0.1-1.0)
[2022-08-27 22:29] LABS: CREATININE SERUM 0.86 MG/DL (0.60-1.30)
[2022-08-27] MEDS ORDERED: DICYCLOMINE 10 MG (BENTYL) CAP PO STA (22:34)
[2022-08-27] MEDS ORDERED: morphine INJ 10 MG/ML 1ML (SYR OR VIAL) IVP STA (23:14)
[2022-08-27 23:26] VITALS: BP 135/78
== END 2022-08-27 23:30 | disposition home or self-care (01) ==
LOC: EDUNIT# 21:36 → ER 21:37
DX: R10.13 Epigastric pain (principal); R10.11 Right upper quadrant pain; F17.210 Nicotine dependence, cigarettes, uncomplicated; Z28.310 Unvaccinated for COVID-19
CPT/HCPCS: 36415; 80053; 83690; 85025

== ENCOUNTER → 2022-08-28 | Outpatient (CLI) | payer MEDICAID ==
--- NOTE | 2022-08-28 08:53 | Diagnostic Imaging Report ---
PROCEDURE: US Gallbladder. TECHNIQUE: Multiple real-time grayscale images were obtained over the right upper quadrant in various projections. INDICATION: Epigastric pain and right upper quadrant pain. Liver is mildly enlarged at 19 cm. Portal vein is patent and shows normal direction of flow. No gallstones or sludge are identified. There is no wall thickening or biliary duct dilatation. Pancreas was mostly obscured by bowel gas. Aorta is nonaneurysmal. IVC is patent. Right kidney measures 10.3 cm in length. No calculi or hydronephrosis is detected. There is no ascites. IMPRESSION: 1. Mild hepatomegaly. 2. No evidence of cholelithiasis or acute cholecystitis. Dictated by: Dictated on workstation # [id number]
== END ==
LOC: RAD 07:25
PROVIDERS: ATTEND Emergency Medicine
DX: R10.13 Epigastric pain (principal); R10.11 Right upper quadrant pain
CPT/HCPCS: 76705

== ENCOUNTER → 2022-09-22 | Outpatient (CLI) | payer MEDICAID ==
[~2022-09-22] MED LIST changes: +CATHETER FLUSH 10 ML SYR IVP PRN
--- NOTE | 2022-09-22 13:40 | Diagnostic Imaging Report ---
INDICATION: Right upper quadrant pain. TECHNIQUE: Acquisitions were acquired over the abdomen after the administration of 5.35 mCi of technetium-99m mebrofenin. The ejection fraction was obtained after the patient drank Ensure. FINDINGS: There is homogeneous uptake of isotope throughout the liver. There is significant accumulation within the gallbladder by 45 minutes. There is free flow of activity in the small bowel. The ejection fraction is 53%. IMPRESSION: No evidence of cystic duct obstruction with a normal gallbladder ejection fraction. Dictated by: Dictated on workstation # [id number]
== END ==
LOC: CARD 10:11
PROVIDERS: ATTEND Family Medicine
DX: R10.11 Right upper quadrant pain (principal)
CPT/HCPCS: 78227